=== PATIENT | male | born 1965 | race Caucasian/White ===

== ENCOUNTER 2017-02-03 10:55 | Emergency (ER) | payer SELFPAY ==
[2017-02-03] MEDS ORDERED: OXYCODONE-ACETAMINOPHEN 5-325 MG TABLET PO ONE (11:26)
[2017-02-03] MEDS ORDERED: AMLODIPINE BESYLATE 5 MG TABLET PO ONE (11:39)
--- NOTE | 2017-02-03 11:41 | ER Document Report ---
HPI - HPI Patient complains to provider of: Left foot pain Onset: Other - 4 days Onset/Duration: Worse Quality of pain: Achy Pain Level: 4 Context: Patient presents complaining of left foot pain for the past 4 days. Patient denies any injury to the foot. Patient states that that has gradually become more swollen and painful with ambulation. Patient denies any fever. Patient denies any known history of gout. Patient does have a history of high blood pressure but states that he ran out of his blood pressure medication 1 month ago. Patient denies any chest pain, headache, dyspnea, back pain or visual disturbances. Associated Symptoms: Other - Left foot pain Exacerbated by: Standing, Walking Relieved by: Denies Similar symptoms previously: No Recently seen / treated by doctor: No - ROS ROS below otherwise negative: Yes Systems Reviewed and Negative: Yes All other systems reviewed and negative - CONSTITUTIONAL Constitutional: DENIES: Fever - NEURO Neurology: DENIES: Headache, Weakness - CARDIOVASCULAR Cardiovascular: DENIES: Chest pain - RESPIRATORY Respiratory: DENIES: Trouble Breathing, Coughing - GASTROINTESTINAL Gastrointestinal: DENIES: Nausea, Patient vomiting - MUSCULOSKELETAL Musculoskeletal: REPORTS: Extremity pain, Swelling - DERM Skin Color: Erythema Skin Problems: None Past Medical History - General Information source: Patient - Social History Smoking Status: Never Smoker Frequency of alcohol use: None Drug Abuse: None 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 IN LAST 30 DAYS: No - HEENT HEENT: Atraumatic, Normocephalic - NECK Neck: Normal Inspection - RESPIRATORY Respiratory: Breath Sounds Normal, No Respiratory Distress - CARDIOVASCULAR Cardiovascular: Regular Rate, Regular Rhythm Pulses: Normal: Dorsalis pedis - MUSCULOSKELETAL/EXTREMETIES Musculoskeletal/Extremeties: MAEW, Tender - Left foot tenderness about left first and second distal metatarsal with, mild erythema to medial aspect of distal left first metatarsal, Edema - NEURO Level of Consciousness: Awake, Alert, Appropriate Motor/Sensory: No Motor Deficit - DERM Integumentary: Warm, Dry Course - Re-evaluation Re-evalutation: 02/03/17 12:47 Patient states that he is out of his blood pressure medication. Patient just started a job but prior to that did not have insurance. Patient states he has been off his blood pressure medicine for the past month. Patient denies any chest pain, shortness of breath, visual problems dyspnea or headache symptoms. Despite lack of elevation in his uric acid test, patient's exam findings are consistent with gout. Discussed this concern with patient. Discussed worsening symptoms that patient should return immediately for. Patient verbalized understanding and agrees with plan of care. 02/03/17 17:58 - Laboratory Laboratory results interpreted by me: 02/03/17 12:48 Labs- Entire Visit 02/03/17 11:42 Uric Acid 7.8 02/03/17 17:59 Labs- Entire Visit 02/03/17 11:42 Uric Acid 7.8 - Diagnostic Test Radiology reviewed: Reports reviewed Discharge - Discharge Clinical Impression: Hx of essential hypertension, Foot pain, left Gout attack Qualifiers: Gout site: foot Gout etiology: unspecified cause Laterality: left Qualified Code(s): M10.9 - Gout, unspecified Condition: Stable Disposition: HOME, SELF-CARE Instructions: Gout (OM), Gout Diet (OM), High Blood Pressure, Requiring Treatment (OM), Steroid Medication Additional Instructions: Return immediately for any new or worsening symptoms Followup with your primary care provider, call tomorrow to make a followup appointment Prescriptions: Amlodipine Besylate 5 mg PO DAILY #30 tab Bisoprolol/Hydrochlorothiazide [Bisoprolol-Hctz 10-6.25 mg Tab] 1 each PO DAILY #30 tablet Oxycodone HCl/Acetaminophen [Percocet 5-325 mg Tablet] 1 tab PO ASDIR PRN #15 tablet PRN Reason: Prednisone [Deltasone 20 mg Tablet] 2 tab PO DAILY 5 Days tablet Forms: Elevated Blood Pressure, Return to Work Referrals: [facility] [Provider Group] - Follow up as needed [facility] [Provider Group] - Follow up tomorrow
--- NOTE | 2017-02-03 12:17 | RADIOLOGY REPORT (SQ) ---
EXAM DESCRIPTION: FOOT LEFT COMPLETE COMPLETED DATE/TIME: 02/03/2017 12:07 pm REASON FOR STUDY: left foot pain/swelling 1st, 2nd MT COMPARISON: None. NUMBER OF VIEWS: Three views. TECHNIQUE: AP, lateral and oblique radiographic images acquired of the left foot. LIMITATIONS: None. FINDINGS: MINERALIZATION: Normal. BONES: No acute fracture dislocation. Plantar calcaneal spur. JOINTS: No effusions. SOFT TISSUES: No soft tissue swelling. No foreign body. OTHER: No other significant finding. IMPRESSION: Calcaneal spur with no acute abnormality. TECHNICAL DOCUMENTATION: JOB ID: [id number] [employer]- All Rights Reserved
[2017-02-03 13:15] VITALS: BP 163/106
== END 2017-02-03 13:00 | disposition home or self-care (01) ==
LOC: ER 10:55
DX: M10.9 Gout, unspecified (principal); M79.672 Pain in left foot; I10 Essential (primary) hypertension; T50.906A Underdosing of unspecified drugs, medicaments and biological substances, initial encounter; Z91.128 Patient's intentional underdosing of medication regimen for other reason; Z91.14 Patient's other noncompliance with medication regimen
CPT/HCPCS: 36415; 84550; 99283

== ENCOUNTER → 2017-08-05 | Outpatient (CLI) | payer OTHER ==
[2017-08-05 08:23] LABS: ABSOLUTE BASOPHILS # (AUTO) 0.1 10^3/uL (0.0-0.2); ABSOLUTE EOSINOPHILS # (AUTO) 0.2 10^3/uL (0.0-0.6); ABSOLUTE LYMPHOCYTES (AUTO) 2.4 10^3/uL (0.5-4.7); ABSOLUTE MONOCYTES (AUTO) 0.7 10^3/uL (0.1-1.4); ABSOLUTE NEUT (AUTO) 5.2 10^3/uL (1.7-8.2); BASOPHILS % (AUTO) 0.6 % (0-2); HEMATOCRIT 50.3 % (37.9-51.0); LYMPHOCYTES % (AUTO) 28.5 % (13-45); MEAN CORPUSCULAR HEMOGLOBIN 28.4 pg (27.0-33.4); MEAN CORPUSCULAR HGB CONC 33.8 g/dL (32.0-36.0); MEAN CORPUSCULAR VOLUME 84 fl (80-97); MONOCYTES % (AUTO) 7.8 % (3-13); PLATELET COUNT 192 10^3/uL (150-450); RED BLOOD COUNT 6.01 10^6/uL (4.35-5.55); RED CELL DISTRIBUTION WIDTH 14.6 % (11.5-14.0); SEGMENTED NEUTROPHILS % (AUTO) 61.1 % (42-78); TOTAL CELLS COUNTED % (AUTO) 100 %; WHITE BLOOD COUNT 8.5 10^3/uL (4.0-10.5)
[2017-08-05 08:47] LABS: ALANINE AMINOTRANSFERASE 33 U/L (21-72); ALBUMIN 4.3 g/dL (3.5-5.0); ALKALINE PHOSPHATASE 84 U/L (38-126); ANION GAP 13 (5-19); ASPARTATE AMINO TRANSFERASE 39 U/L (17-59); BILIRUBIN,DIRECT 0.4 mg/dL (0.0-0.4); BILIRUBIN,TOTAL 0.6 mg/dL (0.2-1.3); BLOOD UREA NITROGEN 18 mg/dL (7-20); CALCIUM 10.1 mg/dL (8.4-10.2); CARBON DIOXIDE 31 mmol/L (22-30); CHLORIDE 99 mmol/L (98-107); GLUCOSE 118 mg/dL (75-110); POTASSIUM 4.3 mmol/L (3.6-5.0); SODIUM 142.8 mmol/L (137-145); TOTAL PROTEIN 6.7 g/dL (6.3-8.2)
[2017-08-06 08:40] LABS: PROSTATE SPECIFIC ANTIGEN 0.7 ng/mL (0.0-4.0); PSA % FREE 27.1 % (.); PSA FREE 0.19 ng/mL
[2017-08-06 08:46] LABS: CHOLESTEROL 210.81 mg/dL (0-200); TRIGLYCERIDES 469 mg/dL (<150)
[2017-08-06 08:57] LABS: DIRECT LDL 105 mg/dL (<100)
== END ==
LOC: CCC 07:17
DX: Z00.00 Encounter for general adult medical examination without abnormal findings (principal); N18.1 Chronic kidney disease, stage 1; R03.0 Elevated blood-pressure reading, without diagnosis of hypertension
CPT/HCPCS: 36415; 80053; 80061; 83036; 84154; 84443; 85025

== ENCOUNTER → 2018-09-16 | Outpatient (CLI) | payer BC ==
--- NOTE | 2018-09-16 11:36 | RADIOLOGY REPORT (SQ) ---
EXAM DESCRIPTION: U/S SCROTUM W/O DOPPLER COMPLETED DATE/TIME: 09/16/2018 11:17 am REASON FOR STUDY: HYDROCELE N43.3 HYDROCELE, UNSPECIFIED COMPARISON: 11/22/2015 TECHNIQUE: Static and realtime daniels scale imaging of the scrotum and testes. Selected color Doppler and spectral images recorded to document blood flow. LIMITATIONS: None. FINDINGS: RIGHT: TESTICLE: Normal size, 5.1 x 3 x 2.9 cm. Normal echotexture. Normal blood flow. No mass. EPIDIDYMIS: Not well seen. HYDROCELE OR VARICOCELE: Large hydrocele, 11.5 x 9.9 x 6.9 cm. There is some mobile debris within it . HERNIA OR EXTRA-TESTICULAR MASS: No. OTHER: No other significant finding. LEFT: TESTICLE: Normal size, 4.6 x 2.7 x 2.5 cm. . Normal echotexture. Normal blood flow. No mass. EPIDIDYMIS: Normal. 1 cm. HYDROCELE OR VARICOCELE: No. HERNIA OR EXTRA-TESTICULAR MASS: No. OTHER: No other significant finding. IMPRESSION: Large right hydrocele. TECHNICAL DOCUMENTATION: JOB ID: [id number] [employer]- All Rights Reserved Reading location - IP/workstation name: [email or web address]
== END ==
LOC: RAD 10:20
DX: N43.3 Hydrocele, unspecified (principal)
CPT/HCPCS: 76870

== ENCOUNTER 2019-09-14 08:30 | Emergency (ER) | payer BC ==
[2019-09-14 08:39] VITALS: BP 188/105
[2019-09-14] MEDS ORDERED: HYDROCODONE/ACETAMINOPHEN 5-325 MG TABLET PO ONE (09:35)
--- NOTE | 2019-09-14 09:39 | ER Document Report ---
ED Extremity Problem, Lower - General Chief Complaint: Feet Swelling Stated Complaint: FEET SWELLING Time Seen by Provider: 09/14/19 09:16 Primary Care Provider: DOMENIC TODD PA-C [Primary Care Provider] - 09/16/19 Notes: Patient is a 53-year-old male who presents the emergency department with a chief complaint of bilateral lower extremity swelling. Patient states that he first noticed his swelling 4 months ago, but states that over the past 2 weeks his swelling and pain has gotten progressively worse. Patient states that it feels like he is standing on a hot argenis. Patient has history of hypertension. He does not know what medications he takes, but states that he takes a water pill and high blood pressure medication. TRAVEL OUTSIDE OF THE [place] IN LAST 30 DAYS: No - Related Data Allergies/Adverse Reactions: No Known Allergies Allergy (Unverified 02/03/17 10:59) Past Medical History - General Information source: Patient - Social History Smoking Status: Never Smoker Family History: Hypertension - Past Medical History Cardiac Medical History: Reports: Hx Hypertension Renal/ Medical History: Denies: Hx Peritoneal Dialysis Past Surgical History: Reports: Hx Appendectomy Review of Systems - Review of Systems Notes: REVIEW OF SYSTEMS: CONSTITUTIONAL : Denies recent illness. Denies recent unintentional weight loss. Denies fever, chills, or sweats. EENT: Denies eye, ear, throat, or mouth pain, discharge, or symptoms. Denies na cassie or sinus congestion. CARDIOVASCULAR: Denies chest pain. RESPIRATORY: Denies shortness of breath, cough, congestion, difficulty breathing, or wheezing. GASTROINTESTINAL: Denies nausea, vomiting, and diarrhea. Denies abdominal pain. Denies constipation. GENITOURINARY: Denies difficulty urinating, burning, blood in urine, urgency or frequency. MUSCULOSKELETAL: Denies neck and back pain. See HPI. SKIN: Denies rash, itchiness, or lesions HEMATOLOGIC : Denies easy bruising or bleeding. LYMPHATIC: Denies swollen, painful, enlarged glands. NEUROLOGICAL: Denies no numbness or tingling denies weakness. Denies headache. Denies altered mental status. Denies alteration in speech. PSYCHIATRIC: Denies stress, anxiety, alteration in sleep patterns, or depression. All other systems reviewed and negative. Physical Exam - Vital signs Vitals: Temp Pulse Resp BP Pulse Ox 97.6 F 100 22 H 188/105 H 100 05/27/20 08:37 09/14/19 08:37 09/14/19 08:37 09/14/19 08:37 09/14/19 08:37 - Notes Notes: PHYSICAL EXAMINATION: GENERAL: Appears well, healthy, well-nourished, no acute distress. HEAD: Normocephalic, atraumatic. EYES: PERRL, conjunctiva normal, all extraocular movements intact, sclera nonicteric ENT: Moist mucous membranes. NECK: Supple, no noticeable swelling, redness, rash. Normal range of motion. LUNGS: Equal breath sounds bilaterally and clear to auscultation. No wheezes rales or rhonchi. CARDIOVASCULAR: S1-S2, regular rate, regular rhythm. Radial pulses 2+, normal. ABDOMEN: Normoactive bowel sounds. Soft, nontender, no guarding, no rebound tenderness, and no masses palpated. EXTREMITIES: Normal strength and range of motion, No cyanosis. Tenderness noted to bilateral lower extremities with 2+ pitting edema bilaterally. NEUROLOGICAL: Moves all extremities upon command. Strength 5/5 in all extremities. PSYCH: Normal mood, normal affect. SKIN: Warm, dry. No rash, lesions, ulcerations noted. Normal skin turgor. Course - Re-evaluation Re-evalutation: 09/14/19 11:11 Hematology does not show leukocytosis. Hemoglobin is slightly elevated. C hemistries and liver function tests are unremarkable. Patient's BNP is 1130. I will have the patient follow-up with his primary care provider. We will start him on a small course of Lasix to help with the swelling in his legs. Patient is in agreement that he will follow-up with his primary care provider. Venous Doppler does not show DVT, per tech. Low suspicion for cellulitis. X-rays of his feet are unremarkable. Follow-up precautions were given. Verbal discharge instructions were given to the patient. They verbalized understanding. They are stable for discharge. - Vital Signs Vital signs: Temp Pulse Resp BP Pulse Ox 97.6 F 100 22 H 188/105 H 100 09/14/19 09:25 09/14/19 08:37 09/14/19 08:37 09/14/19 08:37 09/14/19 08:37 - Laboratory Result Diagrams: 09/14/19 09:51 09/14/19 09:51 Laboratory results interpreted by me: 09/14/19 09/14/19 09/14/19 09:51 09:51 09:51 RBC 5.86 H Hgb 17.5 H RDW 15.6 H Sodium 136.0 L Glucose 139 H NT-Pro-B Natriuret Pep 1130 H Discharge - Discharge Clinical Impression: Swollen feet, Pain in both feet Condition: Stable Disposition: HOME, SELF-CARE Additional Instructions: You were seen today in the emergency department for swelling and pain in both your legs. Your x-ray is normal. Your ultrasound does not show blood clot. You are being started on Lasix to help with the swelling. Please take as directed. Follow-up with your primary care provider on Thursday in regards to this visit. Call them today make an appointment. You can take the [place] as needed for extreme pain. Try not to take too much from the medication. Do not drive when you take [place]. Wear compression stockings. Elevate your legs. Prescriptions: Furosemide [Lasix 20 mg Tablet] 20 mg PO QAM #4 tablet Forms: Return to Work Referrals: DOMENIC TODD PA-C [Primary Care Provider] - 09/16/19
[2019-09-14 10:15] LABS: ABSOLUTE BASOPHILS # (AUTO) 0.1 10^3/uL (0.0-0.2); ABSOLUTE EOSINOPHILS # (AUTO) 0.1 10^3/uL (0.0-0.6); ABSOLUTE LYMPHOCYTES (AUTO) 1.6 10^3/uL (0.5-4.7); ABSOLUTE MONOCYTES (AUTO) 0.7 10^3/uL (0.1-1.4); ABSOLUTE NEUT (AUTO) 5.7 10^3/uL (1.7-8.2); BASOPHILS % (AUTO) 0.7 % (0-2); EOSINOPHILS % (AUTO) 1.5 % (0-6); HEMATOCRIT 49.5 % (37.9-51.0); HEMOGLOBIN 17.5 g/dL (13.5-17.0); LYMPHOCYTES % (AUTO) 19.8 % (13-45); MEAN CORPUSCULAR HEMOGLOBIN 29.9 pg (27.0-33.4); MEAN CORPUSCULAR HGB CONC 35.3 g/dL (32.0-36.0); MEAN CORPUSCULAR VOLUME 85 fl (80-97); MONOCYTES % (AUTO) 8.7 % (3-13); PLATELET COUNT 150 10^3/uL (150-450); RED BLOOD COUNT 5.86 10^6/uL (4.35-5.55); RED CELL DISTRIBUTION WIDTH 15.6 % (11.5-14.0); SEGMENTED NEUTROPHILS % (AUTO) 69.3 % (42-78); TOTAL CELLS COUNTED % (AUTO) 100 %; WHITE BLOOD COUNT 8.2 10^3/uL (4.0-10.5)
--- NOTE | 2019-09-14 10:20 | RADIOLOGY REPORT (SQ) ---
EXAM DESCRIPTION: FOOT BILATERAL 3 VIEWS IMAGES COMPLETED DATE/TIME: 09/14/2019 10:02 am REASON FOR STUDY: foot pain COMPARISON: None. NUMBER OF VIEWS: Six views. TECHNIQUE: AP, lateral and oblique views of the right and left feet were obtained. LIMITATIONS: None. FINDINGS: RIGHT FOOT: MINERALIZATION: Normal. BONES: No acute fracture or dislocation. JOINTS: The normal tarsometatarsal alignment is preserved. 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 SOFT TISSUES: No soft tissue swelling or radiopaque foreign body. OTHER: Enthesophytes at the calcaneal insertion of the Achilles tendon. LEFT FOOT: MINERALIZATION: Normal. BONES: No acute fracture or dislocation. JOINTS: The normal tarsometatarsal alignment is preserved. There is osteoarthrosis of the 1st MTP rené int. SOFT TISSUES: No soft tissue swelling or radiopaque foreign body. OTHER: Enthesophytes at the calcaneal insertion of the plantar fascia. IMPRESSION: 1. No acute osseous abnormality of the right foot. 2. No acute osseous abnormality of the left foot. TECHNICAL DOCUMENTATION: JOB ID: [id number] 2010 [employer]- All Rights Reserved Reading location - IP/workstation name: [email or web address]
[2019-09-14 10:33] LABS: ALBUMIN 4.1 g/dL (3.5-5.0); ALKALINE PHOSPHATASE 82 U/L (38-126); ANION GAP 8 (5-19); ASPARTATE AMINO TRANSFERASE 36 U/L (17-59); BILIRUBIN,TOTAL 0.8 mg/dL (0.2-1.3); BLOOD UREA NITROGEN 15 mg/dL (7-20); CALCIUM 9.2 mg/dL (8.4-10.2); CARBON DIOXIDE 26 mmol/L (22-30); CHLORIDE 102 mmol/L (98-107); GLUCOSE 139 mg/dL (75-110); POTASSIUM 3.8 mmol/L (3.6-5.0); TOTAL PROTEIN 6.8 g/dL (6.3-8.2)
[2019-09-14] MEDS ORDERED: HYDROCODONE/ACETAMINOPHEN 5-325 MG (6 TAB/ER DISP) PO PRN (11:13)
--- NOTE | 2019-09-14 13:23 | RADIOLOGY REPORT (SQ) ---
EXAM DESCRIPTION: VENOUS BILATERAL LOWER IMAGES COMPLETED DATE/TIME: 09/14/2019 1:01 pm REASON FOR STUDY: leg pain; swelling COMPARISON: None. TECHNIQUE: Dynamic and static daniels scale and color images acquired of both lower extremity venous sy stems. Selected spectral images acquired with additional compression and augmentation maneuvers. Imag es stored on PACS. LIMITATIONS: Evaluation is limited due to the patient's body habitus. FINDINGS: RIGHT LEG COMMON FEMORAL AND FEMORAL: Normal phasicity, compression and augmentation. No visualized echogenic m aterial on daniels scale. No defects on color images. POPLITEAL: Normal compression and augmentation. No visualized echogenic material on daniels scale. No de fects on color images. CALF VESSELS: Normal compression and augmentation. No visualized echogenic material on daniels scale. No defects on color image. GSV AND SSV: Normal compression. No visualized echogenic material on daniels scale. No defects on color images. ANY DEEP VENOUS INSUFFICIENCY: No. ANY EVIDENCE OF POPLITEAL CYST: No. OTHER: Unable to visualize the peroneal vein. LEFT LEG COMMON FEMORAL AND FEMORAL: Normal phasicity, compression and augmentation. No visualized echogenic m aterial on daniels scale. No defects on color images. POPLITEAL: Normal compression and augmentation. No visualized echogenic material on daniels scale. No de fects on color images. CALF VESSELS: Normal compression and augmentation. No visualized echogenic material on daniels scale. No defects on color images. GSV AND SSV: Normal compression. No visualized echogenic material on daniels scale. No defects on color images. ANY DEEP VENOUS INSUFFICIENCY: No. ANY EVIDENCE POPLITEAL CYST: No. OTHER: Unable to visualize the peroneal vein. IMPRESSION: NO EVIDENCE DVT OR SVT IN EITHER LEG. TECHNICAL DOCUMENTATION: JOB ID: [id number] [employer]- All Rights Reserved Reading location - IP/workstation name: [email or web address]-
== END 2019-09-14 11:38 | disposition home or self-care (01) ==
LOC: ER 08:30
DX: R22.43 Localized swelling, mass and lump, lower limb, bilateral (principal); M79.672 Pain in left foot; M79.671 Pain in right foot; I10 Essential (primary) hypertension
CPT/HCPCS: 36415; 80053; 83880; 85025; 93970; 99284

== ENCOUNTER → 2019-10-28 | Outpatient (CLI) | payer BC ==
[2019-10-28 08:28] LABS: HEMATOCRIT 49.7 % (37.9-51.0); MEAN CORPUSCULAR HEMOGLOBIN 30.1 pg (27.0-33.4); MEAN CORPUSCULAR HGB CONC 34.3 g/dL (32.0-36.0); MEAN CORPUSCULAR VOLUME 88 fl (80-97); PLATELET COUNT 152 10^3/uL (150-450); RED BLOOD COUNT 5.66 10^6/uL (4.35-5.55); WHITE BLOOD COUNT 7.3 10^3/uL (4.0-10.5)
[2019-10-28 08:52] LABS: ALBUMIN 4.3 g/dL (3.5-5.0); ALKALINE PHOSPHATASE 86 U/L (38-126); ANION GAP 6 (5-19); ASPARTATE AMINO TRANSFERASE 43 U/L (17-59); BILIRUBIN,TOTAL 0.6 mg/dL (0.2-1.3); BLOOD UREA NITROGEN 25 mg/dL (7-20); CALCIUM 9.1 mg/dL (8.4-10.2); CARBON DIOXIDE 33 mmol/L (22-30); CHLORIDE 99 mmol/L (98-107); GLUCOSE 137 mg/dL (75-110); POTASSIUM 5.1 mmol/L (3.6-5.0); TOTAL PROTEIN 6.9 g/dL (6.3-8.2)
[2019-10-29 10:04] LABS: APPEARANCE,URINE CLEAR; BILIRUBIN,URINE NEGATIVE (NEGATIVE); COLOR,URINE AMBER; GLUCOSE, URINE NEGATIVE (NEGATIVE); KETONES,URINE NEGATIVE (NEGATIVE); LEUKOCYTE ESTERASE,URINE NEGATIVE (NEGATIVE); NITRITE,URINE NEGATIVE (NEGATIVE); PROTEIN,URINE 100 mg/dL (NEGATIVE); URINE SPECIFIC GRAVITY 1.018; UROBILINOGEN,URINE NEGATIVE mg/dL (<2.0)
[2019-10-29 10:11] LABS: CHOLESTEROL 195.82 mg/dL (0-200); TRIGLYCERIDES 279 mg/dL (<150)
[2019-10-29 10:22] LABS: DIRECT LDL 125 mg/dL (<100)
[2019-10-29 10:24] LABS: VLDL CHOLESTEROL 55.8 mg/dL (10-31)
== END ==
LOC: OD 07:07
PROVIDERS: ATTEND Physician Assistant
DX: Z79.01 Long term (current) use of anticoagulants (principal); Z79.899 Other long term (current) drug therapy; Z13.220 Encounter for screening for lipoid disorders
CPT/HCPCS: 36415; 80048; 80061; 80076; 81001; 82272; 83735; 84443; 85027; 85730

== ENCOUNTER → 2019-12-09 | Outpatient (CLI) | payer BC | LOC: OD 07:38 | PROVIDERS: ATTEND Physician Assistant | DX: R73.01 Impaired fasting glucose (principal) | CPT/HCPCS: 36415; 83036 ==

== ENCOUNTER → 2020-01-24 | Outpatient (CLI) | payer BC ==
--- NOTE | 2020-01-24 10:10 | RADIOLOGY REPORT (SQ) ---
EXAM DESCRIPTION: DUPLEX ART/AMENA FLOW COMPLETE IMAGES COMPLETED DATE/TIME: 01/24/2020 9:42 am REASON FOR STUDY: ESSENTIAL HTN I10 ESSENTIAL (PRIMARY) HYPERTENSION COMPARISON: None. TECHNIQUE: Realtime and static grayscale images acquired. Selected color Doppler, velocities and spe ctral images recorded. LIMITATIONS: Nondiagnostic study due to the patient's body habitus and inability to hold his breath. FINDINGS: RIGHT KIDNEY: Normal size. No significant pathology as visualized. LEFT KIDNEY: Normal size. No significant pathology as visualized. BLADDER: Normal. OTHER: No other significant finding. IMPRESSION: NONDIAGNOSTIC STUDY. UNABLE TO OBTAIN ADEQUATE DOPPLER IMAGES. COMMENT: NORMAL RENAL ARTERY/AORTA VELOCITY RATIO IS LESS THAN OR EQUAL TO 3.5. TECHNICAL DOCUMENTATION: JOB ID: [id number] 2010 [employer]- All Rights Reserved Reading location - IP/workstation name: [email or web address]
== END ==
LOC: RAD 07:20
PROVIDERS: ATTEND Physician Assistant
DX: I10 Essential (primary) hypertension (principal)
CPT/HCPCS: 93975

== ENCOUNTER → 2020-02-24 | Outpatient (CLI) | payer BC ==
[2020-02-24 09:07] LABS: APPEARANCE,URINE CLEAR; BILIRUBIN,URINE NEGATIVE (NEGATIVE); COLOR,URINE YELLOW; GLUCOSE, URINE NEGATIVE (NEGATIVE); KETONES,URINE NEGATIVE (NEGATIVE); LEUKOCYTE ESTERASE,URINE NEGATIVE (NEGATIVE); NITRITE,URINE NEGATIVE (NEGATIVE); PROTEIN,URINE 100 mg/dL (NEGATIVE); UROBILINOGEN,URINE NEGATIVE mg/dL (<2.0)
[2020-02-24 09:07] LABS: HEMOGLOBIN 17.5 g/dL (13.5-17.0); MEAN CORPUSCULAR HEMOGLOBIN 29.2 pg (27.0-33.4); MEAN CORPUSCULAR HGB CONC 34.3 g/dL (32.0-36.0); MEAN CORPUSCULAR VOLUME 85 fl (80-97); PLATELET COUNT 145 10^3/uL (150-450); RED BLOOD COUNT 5.99 10^6/uL (4.35-5.55); WHITE BLOOD COUNT 7.4 10^3/uL (4.0-10.5)
[2020-02-24 09:37] LABS: ALBUMIN 4.4 g/dL (3.5-5.0); ALKALINE PHOSPHATASE 76 U/L (38-126); ANION GAP 12 (5-19); ASPARTATE AMINO TRANSFERASE 40 U/L (17-59); BILIRUBIN,DIRECT 0.2 mg/dL (0.0-0.4); BILIRUBIN,TOTAL 0.7 mg/dL (0.2-1.3); CALCIUM 9.2 mg/dL (8.4-10.2); CARBON DIOXIDE 28 mmol/L (22-30); CHLORIDE 100 mmol/L (98-107); GLUCOSE 98 mg/dL (75-110); POTASSIUM 3.8 mmol/L (3.6-5.0); TOTAL PROTEIN 7.1 g/dL (6.3-8.2)
[2020-02-24 09:38] LABS: BLOOD UREA NITROGEN 23 mg/dL (7-20)
== END ==
LOC: OD 07:49
PROVIDERS: ATTEND Internal Medicine Cardiovascular Disease
DX: I48.91 Unspecified atrial fibrillation (principal); Z79.01 Long term (current) use of anticoagulants; Z79.899 Other long term (current) drug therapy
CPT/HCPCS: 36415; 80048; 80076; 81001; 82272; 85027; 85730

== ENCOUNTER 2020-03-18 08:36 | Inpatient (IN) | payer BC ==
[2020-03-18 09:33] LABS: ABSOLUTE LYMPHOCYTES (AUTO) 0.9 10^3/uL (0.5-4.7); ABSOLUTE MONOCYTES (AUTO) 0.6 10^3/uL (0.1-1.4); BASOPHILS % (AUTO) 0.6 % (0-2); EOSINOPHILS % (AUTO) 0.2 % (0-6); HEMATOCRIT 49.5 % (37.9-51.0); HEMOGLOBIN 17.1 g/dL (13.5-17.0); LYMPHOCYTES % (AUTO) 20.4 % (13-45); MEAN CORPUSCULAR HEMOGLOBIN 29.2 pg (27.0-33.4); MEAN CORPUSCULAR HGB CONC 34.5 g/dL (32.0-36.0); MEAN CORPUSCULAR VOLUME 85 fl (80-97); MONOCYTES % (AUTO) 13.8 % (3-13); PLATELET COUNT 123 10^3/uL (150-450); RED BLOOD COUNT 5.85 10^6/uL (4.35-5.55); RED CELL DISTRIBUTION WIDTH 15.2 % (11.5-14.0); TOTAL CELLS COUNTED % (AUTO) 100 %; WHITE BLOOD COUNT 4.6 10^3/uL (4.0-10.5)
--- NOTE | 2020-03-18 09:49 | RADIOLOGY REPORT (SQ) ---
EXAM DESCRIPTION: CHEST SINGLE VIEW IMAGES COMPLETED DATE/TIME: 03/18/2020 9:34 am REASON FOR STUDY: Shortness of breath COMPARISON: None. EXAM PARAMETERS: NUMBER OF VIEWS: One view. TECHNIQUE: Single frontal radiographic view of the chest acquired. RADIATION DOSE: NA LIMITATIONS: None. FINDINGS: LUNGS AND PLEURA: Upper lobe opacities. No effusions. MEDIASTINUM AND HILAR STRUCTURES: No masses. Contour normal. HEART AND VASCULAR STRUCTURES: Enlarged heart. No overt failure. BONES: No acute findings. HARDWARE: None in the chest. OTHER: No other significant finding. IMPRESSION: Dense upper lobe opacities suspicious for covid 19. Cardiac enlargement without failure. TECHNICAL DOCUMENTATION: JOB ID: [id number] 2010 [employer]- All Rights Reserved Reading location - IP/workstation name: [email or web address]
[2020-03-18 09:59] LABS: ALBUMIN 4.2 g/dL (3.5-5.0); ALKALINE PHOSPHATASE 80 U/L (38-126); ANION GAP 6 (5-19); ASPARTATE AMINO TRANSFERASE 51 U/L (17-59); BILIRUBIN,DIRECT 0.1 mg/dL (0.0-0.4); BILIRUBIN,TOTAL 0.6 mg/dL (0.2-1.3); BLOOD UREA NITROGEN 16 mg/dL (7-20); CALCIUM 9.1 mg/dL (8.4-10.2); CARBON DIOXIDE 30 mmol/L (22-30); CHLORIDE 99 mmol/L (98-107); GLUCOSE 116 mg/dL (75-110); POTASSIUM 3.8 mmol/L (3.6-5.0); TOTAL PROTEIN 6.9 g/dL (6.3-8.2)
[2020-03-18 10:10] LABS: A TYPE INFLUENZA AG NEGATIVE (NEGATIVE); B INFLUENZA AG NEGATIVE (NEGATIVE)
--- NOTE | 2020-03-18 11:54 | ER Document Report ---
Entered by BLAS HENDERSON SCRIBE 03/18/20 0941 Acting as scribe for:CORBIN JERONIMO MD ED General - General Chief Complaint: Shortness Of Breath Stated Complaint: FEVER,COUGH,CONGESTION Time Seen by Provider: 03/18/20 09:28 Primary Care Provider: JUSTEN WADE MD [Primary Care Provider] - Follow up as needed Mode of Arrival: Ambulatory Information source: Patient Notes: This 54 year old male patient presents to the emergency department today with complaints of feeling tired, short of breath, generalized body aches, and fevers. Patient reports that he lives with his sister and she recently tested positive for COVID-19. He reports he has had shortness of breath for the past five days, mentioning that he feels generally worn out all the time. TRAVEL OUTSIDE OF THE [place] IN LAST 30 DAYS: No - Related Data Allergies/Adverse Reactions: No Known Allergies Allergy (Unverified 02/03/17 10:59) Past Medical History - General Information source: Patient - Social History Smoking Status: Never Smoker Cigarette use (# per day): No Chew tobacco use (# tins/day): No Frequency of alcohol use: None Drug Abuse: None Lives with: Family Family History: Reviewed & Not Pertinent, Hypertension - Past Medical History Cardiac Medical History: Reports: Hx Atrial Fibrillation, Hx Hype rcholesterolemia, Hx Hypertension Past Surgical History: Reports: Hx Appendectomy Review of Systems - Review of Systems Constitutional: See HPI, Fever, Malaise EENT: See HPI, Nose congestion Cardiovascular: No symptoms reported Respiratory: See HPI, Short of breath Gastrointestinal: No symptoms reported Genitourinary: No symptoms reported Male Genitourinary: No symptoms reported Musculoskeletal: See HPI, Muscle pain, Muscle stiffness Skin: No symptoms reported Hematologic/Lymphatic: No symptoms reported Neurological/Psychological: No symptoms reported -: Yes All other systems reviewed and negative Physical Exam - Vital signs Vitals: Temp Resp BP Pulse Ox 99.1 F 18 168/129 H 93 03/18/20 08:59 03/18/20 08:59 03/18/20 08:59 03/18/20 08:59 - Notes Notes: Physical Exam: General: Alert, appears well. HEENT: Normocephalic. Atraumatic. PERRL. Extraocular movements intact. Oropharynx clear. Neck: Supple. Non-tender. Respiratory: Mild respiratory distress, minimally tachypneic, saturating at 94% on room air. Clear and equal breath sounds bilaterally. Cardiovascular: Regular rate and rhythm. Abdominal: Morbidly obese. No distension. Normal Bowel Sounds. Back: No gross abnormalities. Extremities: Moves all four extremities. Upper extremities: Normal inspection. Normal ROM. Lower extremities: 1+ edema bilaterally. Normal ROM. Neurological: Normal cognition. AAOx4. Normal speech. Psychological: Normal affect. Normal Mood. Skin: Warm. Dry. Normal color. Course - Re-evaluation Re-evalutation: 03/18/20 12:32 The patient was evaluated during the global COVID-19 pandemic and that diagnosis was suspected/considered upon their initial presentation. Their evaluation, treatment and testing was consistent with current guidelines for patients who present with complaints or symptoms that may be related to COVID-19. - Vital Signs Vital signs: Temp Pulse Resp BP Pulse Ox 99.1 F 22 H 172/115 H 94 03/18/20 08:59 03/18/20 10:04 03/18/20 13:01 03/18/20 13:01 - Laboratory Result Diagrams: 03/18/20 09:21 03/18/20 09:21 Laboratory results interpreted by me: 03/18/20 03/18/20 03/18/20 09:21 09:21 12:54 RBC 5.85 H Hgb 17.1 H RDW 15.2 H Plt Count 123 L Glynn % (Auto) 13.8 H Carbonic Acid 0.98 L ABG pH 7.47 H ABG pCO2 32.6 L ABG pO2 70.6 L ABG Total CO2 Sodium 135.4 L Glucose 116 H 03/18/20 13:41 RBC Hgb RDW Plt Count Glynn % (Auto) Carbonic Acid 0.94 L ABG pH ABG pCO2 31.1 L ABG pO2 79.4 L ABG Total CO2 22.2 L Sodium Glucose - Diagnostic Test Radiology reviewed: Image reviewed, Reports reviewed - Chest x-ray shows dense bilateral upper lobe opacities consistent with COVID-19. - EKG Interpretation by Oh EKG shows normal: Vanderbilt, QRS Complexes, ST-T Waves. abnormal: Intervals - Prolonged QT interval Rate: Normal - 98 Rhythm: A.Fib, PVC's Voltage: Consistent with RVH When compared to previous EKG there are: No significant change - Consults Heidi Loving NP Time consulted: 14:30 Consulted provider: will come to ER Critical Care Note - Critical Care Note Total time excluding time spent on procedures (mins): 35 Comments: At least 35 minutes spent evaluating patient, reviewed old records and lab work, repeat evaluations drawn to determine how severe his hypoxia was and if he fit criteria for admission. Discussing the case with the hospitalist lead, discussing the case with a second hospitalist lead, and discussing the case with the admitting hospitalist provider. Discharge - Discharge Clinical Impression: Pneumonia due to 2019-nCoV, Hypoxemia, Chronic atrial fibrillation with RVR Condition: Fair Disposition: ADMITTED INPATIENT Unit Admitted: IMCU Referrals: JUSTEN WADE MD [Primary Care Provider] - Follow up as needed I personally performed the services described in the documentation, reviewed and edited the documentation which was dictated to the scribe in my presence, and it accurately records my words and actions.
[2020-03-18 13:05] LABS: ARTERIAL BLOOD BASE EXCESS 0.3 mmol/L; ARTERIAL BLOOD H2CO3 0.98 mmol/L (1.05-1.35); ARTERIAL BLOOD O2 SATURATION 95.2 % (94-98); ARTERIAL BLOOD PCO2 32.6 mmHg (35-45); ARTERIAL BLOOD PH 7.47 (7.35-7.45); ARTERIAL BLOOD PO2 70.6 mmHg (80-100)
[2020-03-18 13:06] LABS: ARTERIAL BLOOD FIO2 ROOM AIR
[2020-03-18 14:03] LABS: ARTERIAL BLOOD BASE EXCESS -1.3 mmol/L; ARTERIAL BLOOD FIO2 2L; ARTERIAL BLOOD H2CO3 0.94 mmol/L (1.05-1.35); ARTERIAL BLOOD HCO3 21.3 mmol/L (20-24); ARTERIAL BLOOD O2 SATURATION 96.4 % (94-98); ARTERIAL BLOOD PCO2 31.1 mmHg (35-45); ARTERIAL BLOOD PH 7.45 (7.35-7.45); ARTERIAL BLOOD PO2 79.4 mmHg (80-100); ARTERIAL BLOOD TOTAL CO2 22.2 mmol/L (23-27)
[2020-03-18] MEDS ORDERED: NORMAL SALINE 1000 ML 1,000 ML IV PRN (14:41)
[2020-03-18] MEDS ORDERED: MAGNESIUM HYDROXIDE SUSP 30 ML UDCUP PO PRN (14:41)
[2020-03-18] MEDS ORDERED: PROMETHAZINE HCL INJ 25 MG/1 ML VIAL IV PRN (14:41)
[2020-03-18] MEDS ORDERED: ALBUTEROL SULFATE 0.083% NEB 2.5 MG/3 ML AMPUL NEB PRN (14:41)
[2020-03-18] MEDS ORDERED: MAG HYDROX/AL HYDROX/SIMETH SUSP 30 ML UDCUP PO PRN (14:41)
--- NOTE | 2020-03-18 15:10 | EKG REPORT ---
SEVERITY:- ABNORMAL ECG - ATRIAL FIBRILLATION, V-RATE 81-133 VENTRICULAR PREMATURE COMPLEXES CONSIDER RIGHT VENTRICULAR HYPERTROPHY PROLONGED QT INTERVAL : Confirmed by: Tyler Lebron MD 18-Mar-2020 15:09:42
[2020-03-18] MEDS ORDERED: PHARMACY COMMUNICATION ORDER MC NR (15:15)
--- NOTE | 2020-03-18 15:20 | PDOC H&P ---
History of Present Illness Admission Date/PCP: JUSTEN WADE MD Patient complains of: dyspnea, fatigue, fever History of Present Illness: DENI LIM is a 54 year old male with a past medical history of persistent atrial fibrillation, hypertension, hyperlipidemia, and morbid obesity who presented to the emergency department today with complaint of 4 to 5 days of progressively worsening fatigue, malaise/myalgia, and dyspnea at rest. He reports fever at home; T-max 101.5 yesterday. He states that his sister, who he lives with, is COVID positive. Evaluation in the emergency department revealed low-grade fever (99.1), atrial fibrillation RVR (HR 96-145; persistently >120), hypertension, and tachypnea. He is mildly hypoxic (88 to 92% on room air). Laboratory evaluation was essentially unremarkable other than ABG which revealed respiratory alkalosis. CXR reveals bilateral upper lob opacities consistent with coronavirus. He is referred to the hospitalist service for further evaluation and management of the above stated complaints and findings. Past Medical History Cardiac Medical History: Reports: Atrial Fibrillation, Hyperlipidema, Hypertension Denies: Congestive Heart Failure, Myocardial Infarction Pulmonary Medical History: Reports: Sleep Apnea EENT Medical History: Reports: None Neurological Medical History: Reports: None Endocrine Medical History: Reports: Obesity Renal/ Medical History: Reports: None Malignancy Medical History: Reports: None GI Medical History: Reports: None Musculoskeltal Medical History: Reports: None Skin Medical History: Reports: None Psychiatric Medical History: Reports: None Traumatic Medical History: Reports: None Hematology: Reports: None Infectious Medical History: Reports: None Past Surgical History Past Surgical History: Reports: Appendectomy, Orthopedic Surgery - left shoulder Social History Information Source: Patient Lives with: Family Smoking Status: Never Smoker Electronic Cigarette use?: No Frequency of Alcohol Use: None Hx Recreational Drug Use: No Hx Prescription Drug Abuse: No - Advance Directive Resuscitation Status: Full Code Family History Family History: Reviewed & Not Pertinent, Hypertension Parental Family History Reviewed: Yes Children Family History Reviewed: Yes Sibling(s) Family History Reviewed.: Yes Medication/Allergy Home Medications: Labetalol HCl 100 mg PO BID #60 tablet 11/22/15 Amlodipine Besylate 5 mg PO DAILY #30 tab 02/03/17 Bisoprolol/Hydrochlorothiazide [Bisoprolol-Hctz 10-6.25 mg Tab] 1 each PO DAILY #30 tablet 10/17/17 Oxycodone HCl/Acetaminophen [Percocet 5-325 mg Tablet] 1 tab PO ASDIR PRN #15 tablet 02/03/17 Prednisone [Deltasone 20 mg Tablet] 2 tab PO DAILY 5 Days tablet 02/03/17 Furosemide [Lasix 20 mg Tablet] 20 mg PO QAM #4 tablet 09/14/19 Allergies/Adverse Reactions: No Known Allergies Allergy (Unverified 02/03/17 10:59) Review of Systems Constitutional: PRESENT: anorexia, chills, fatigue, fever(s), weakness. ABSENT: headache(s), weight gain, weight loss Eyes: ABSENT: visual disturbances Ears: ABSENT: hearing changes Cardiovascular: PRESENT: dyspnea on exertion. ABSENT: chest pain, edema, orthropnea, palpitations Respiratory: PRESENT: cough, dyspnea. ABSENT: hemoptysis Gastrointestinal: ABSENT: abdominal pain, constipation, diarrhea, hematemesis, hematochezia, nausea, vomiting Genitourinary: ABSENT: dysuria, hematuria Musculoskeletal: ABSENT: joint swelling Integumentary: ABSENT: rash, wounds Neurological: ABSENT: abnormal gait, abnormal speech, confusion, dizziness, focal weakness, syncope Psychiatric: ABSENT: anxiety, depression, homidical ideation, suicidal ideation Endocrine: ABSENT: cold intolerance, heat intolerance, polydipsia, polyuria Hematologic/Lymphatic: ABSENT: easy bleeding, easy bruising Physical Exam Vital Signs: Temp Pulse Resp BP Pulse Ox 99.1 F 22 H 172/115 H 94 03/18/20 08:59 03/18/20 10:04 03/18/20 13:01 03/18/20 13:01 Intake & Output 03/17/20 03/18/20 03/19/20 06:59 06:59 06:59 Weight 185.519 kg General appearance: PRESENT: no acute distress, cooperative, well-developed, well-nourished Head exam: PRESENT: atraumatic, normocephalic Eye exam: PRESENT: conjunctiva pink, EOMI, PERRLA. ABSENT: scleral icterus Mouth exam: PRESENT: moist, tongue midline Neck exam: ABSENT: carotid bruit, JVD, lymphadenopathy, thyromegaly Respiratory exam: PRESENT: clear to auscultation keenan, symmetrical, tachypnea, unlabored, other - room air spO2 88-92%. ABSENT: rales, rhonchi, wheezes Cardiovascular exam: PRESENT: irregular rhythm, tachycardia. ABSENT: diastolic murmur, rubs, systolic murmur Pulses: PRESENT: normal dorsalis pedis pul Vascular exam: PRESENT: normal capillary refill GI/Abdominal exam: PRESENT: normal bowel sounds, soft. ABSENT: distended, guarding, mass, organolmegaly, rebound, tenderness Rectal exam: PRESENT: deferred Extremities exam: PRESENT: full ROM. ABSENT: calf tenderness, clubbing, pedal edema Musculoskeletal exam: PRESENT: ambulatory Neurological exam: PRESENT: alert, awake, oriented to person, oriented to place, oriented to time, oriented to situation, CN II-XII grossly intact. ABSENT: motor sensory deficit Psychiatric exam: PRESENT: appropriate affect, normal mood. ABSENT: homicidal ideation, suicidal ideation Skin exam: PRESENT: dry, intact, warm. ABSENT: cyanosis, rash Results Laboratory Results: 03/18/20 09:21 03/18/20 09:21 03/18/20 03/18/20 03/18/20 09:21 09:21 09:21 WBC 4.6 RBC 5.85 H Hgb 17.1 H Hct 49.5 MCV 85 MCH 29.2 MCHC 34.5 RDW 15.2 H Plt Count 123 L Seg Neutrophils % 65.0 Carbonic Acid HCO3/H2CO3 Ratio ABG pH ABG pCO2 ABG pO2 ABG HCO3 ABG O2 Saturation ABG Base Excess FiO2 Sodium 135.4 L Potassium 3.8 Chloride 99 Carbon Dioxide 30 Anion Gap 6 BUN 16 Creatinine 1.02 Est GFR ( Amer) > 60 Glucose 116 H Calcium 9.1 Ferritin 141.00 Total Bilirubin 0.6 AST 51 Alkaline Phosphatase 80 C-Reactive Protein 10.0 Total Protein 6.9 Albumin 4.2 03/18/20 03/18/20 12:54 13:41 WBC RBC Hgb Hct MCV MCH MCHC RDW Plt Count Seg Neutrophils % Carbonic Acid 0.98 L 0.94 L HCO3/H2CO3 Ratio 23:1 22:1 ABG pH 7.47 H 7.45 ABG pCO2 32.6 L 31.1 L ABG pO2 70.6 L 79.4 L ABG HCO3 23.0 21.3 ABG O2 Saturation 95.2 96.4 ABG Base Excess 0.3 -1.3 FiO2 ROOM AIR 2L Sodium Potassium Chloride Carbon Dioxide Anion Gap BUN Creatinine Est GFR ( Amer) Glucose Calcium Ferritin Total Bilirubin AST Alkaline Phosphatase C-Reactive Protein Total Protein Albumin Impressions: Chest X-Ray 03/18/20 09:13 IMPRESSION: Dense upper lobe opacities suspicious for covid 19. Cardiac enlargement without failure. Assessment and Plan - Diagnosis (1) Chronic atrial fibrillation with RVR Is this a current diagnosis for this admission?: Yes Plan: Patient w/ chronic, persistent, a. fib. Typically is rate controlled in 70s-80s per patient. Currently in RVR w/ HR 120-140; likely secondary to acute illness/covid pneumonia. He does appear slightly dehydrated by exam; admits to poor oral intake x 2 days. Patient is admitted to [facility] on continuous cardiac telemetry. Continue home dose Eliquis. Gentle IVF x 2L; close attention to prevention of fluid volume overload in setting of COVID. Start diltiazem gtt; titrate per protocol. EKG in the morning. (2) Pneumonia due to 2019-nCoV Is this a current diagnosis for this admission?: Yes Plan: High suspicion for COVID CXR is consistent with covid PNA, sister (who he lives with) is positive, and symptoms are consistent. We will obtain COVID testing. D-dimer, ferritin, and CRP are normal. Provide supplemental oxygen as needed maintain saturations greater than 89%. CPAP nightly and prn. Scheduled and as needed nebulizer treatments. Discussed w/ pharmacy; can't release Remdesivir until test results positive. Will not be able to utilize Azithromycin 2/2 prolonged qTc interval. Will discuss option for convalescent plasma w/ patient. Start IV dexamethasone. Zinc, vitamin D, vitamin C, and melatonin supplementation. Encourage pulmonary toilet. Isolation precautions. (3) HTN (hypertension) Qualifiers: Hypertension type: essential hypertension Qualified Code(s): I10 - Essential (primary) hypertension Is this a current diagnosis for this admission?: Yes Plan: Currently on diltiazem gtt for afib RvR Will resume home medications, once reconciled, as appropriate. Cardiac diet. (4) Morbid obesity with BMI of 50.0-59.9, adult Is this a current diagnosis for this admission?: Yes Plan: Dietary discretion and lifestyle modification encouraged. Cardiac diet. Patient's body habitus/BMI place him at high risk for COVID 19 complications. Close attention to pulmonary toilet. (5) Prolonged QT interval Is this a current diagnosis for this admission?: Yes Plan: Avoid Qt prolonging medications (zofran, azithromycin). EKG in the morning. - Time Time Spent with patient: 35 or more minutes Medications reviewed and adjusted accordingly: Yes Anticipated Discharge Disposition: Home, Self Care Anticipated Discharge Timeframe: unclear
[2020-03-18] MEDS ORDERED: ACETAMINOPHEN 325 MG TABLET PO ONE (15:39)
[2020-03-18] MEDS: DILTIAZEM HCL/D5W 125 MG/125 ML RTUINJ IV PRN ×2 (15:57→22:50)
[2020-03-18] MEDS: DEXAMETHASONE SOD PHOSPHATE INJ 4 MG/1 ML VIAL IV SCH (15:57)
[2020-03-18] MEDS: APIXABAN 5 MG TABLET PO SCH (17:30)
[2020-03-18] MEDS: ASCORBIC ACID 500 MG TABLET PO SCH (17:30)
[2020-03-18] MEDS ORDERED: (PENDING PHARMACY ID) (Irbesartan/Hydrochlorothiazide [Irbesartan-Hctz 300-12.5 Mg Tb] 1 E PO SCH (18:23)
[2020-03-18] MEDS ORDERED: HYDRALAZINE HCL 25 MG TABLET PO ONE (19:00)
[2020-03-18] MEDS: ALBUTEROL SULFATE 0.083% NEB 2.5 MG/3 ML AMPUL NEB SCH (21:13)
[2020-03-18] MEDS: ATORVASTATIN CALCIUM 40 MG TABLET PO SCH (21:16)
[2020-03-18] MEDS ORDERED: LOSARTAN POTASSIUM 50 MG TABLET PO ONE ×2 (22:27→22:45)
[2020-03-18] MEDS ORDERED: HYDROCHLOROTHIAZIDE 12.5 MG TABLET PO ONE ×2 (22:28→22:45)
[2020-03-19] MEDS: ALBUTEROL SULFATE 0.083% NEB 2.5 MG/3 ML AMPUL NEB SCH ×4 (01:55→20:40)
[2020-03-19] MEDS: DILTIAZEM HCL/D5W 125 MG/125 ML RTUINJ IV PRN (05:35)
[2020-03-19 05:38] LABS: ABSOLUTE LYMPHOCYTES (AUTO) 0.7 10^3/uL (0.5-4.7); ABSOLUTE MONOCYTES (AUTO) 0.4 10^3/uL (0.1-1.4); ABSOLUTE NEUT (AUTO) 2.6 10^3/uL (1.7-8.2); BASOPHILS % (AUTO) 0.2 % (0-2); HEMATOCRIT 47.4 % (37.9-51.0); HEMOGLOBIN 16.4 g/dL (13.5-17.0); LYMPHOCYTES % (AUTO) 18.9 % (13-45); MEAN CORPUSCULAR HEMOGLOBIN 29.5 pg (27.0-33.4); MEAN CORPUSCULAR HGB CONC 34.5 g/dL (32.0-36.0); MEAN CORPUSCULAR VOLUME 86 fl (80-97); MONOCYTES % (AUTO) 10.8 % (3-13); PLATELET COUNT 120 10^3/uL (150-450); RED BLOOD COUNT 5.54 10^6/uL (4.35-5.55); SEGMENTED NEUTROPHILS % (AUTO) 70.1 % (42-78); TOTAL CELLS COUNTED % (AUTO) 100 %; WHITE BLOOD COUNT 3.7 10^3/uL (4.0-10.5)
[2020-03-19 06:14] LABS: ANION GAP 12 (5-19); BLOOD UREA NITROGEN 23 mg/dL (7-20); CALCIUM 8.8 mg/dL (8.4-10.2); CARBON DIOXIDE 25 mmol/L (22-30); CHLORIDE 101 mmol/L (98-107); GLUCOSE 157 mg/dL (75-110); POTASSIUM 4.2 mmol/L (3.6-5.0)
--- NOTE | 2020-03-19 06:43 | EKG REPORT ---
SEVERITY:- ABNORMAL ECG - ATRIAL FIBRILLATION, V-RATE 70-115 NONSPECIFIC INTRAVENTRICULAR CONDUCTION DELAY LOW VOLTAGE IN FRONTAL LEADS L POST FASCICULAR BLOCK : Confirmed by: Tyler Lebron MD 19-Mar-2020 06:43:10
[2020-03-19] MEDS ORDERED: DILTIAZEM HCL 60 MG TABLET PO ONE (07:35)
[2020-03-19] MEDS: ASPIRIN 81 MG TABLET, ENT COATED PO SCH (09:41)
[2020-03-19] MEDS: DOCUSATE SODIUM 100 MG CAPSULE PO SCH (09:41)
[2020-03-19] MEDS: ASCORBIC ACID 500 MG TABLET PO SCH ×2 (09:42→17:06)
[2020-03-19] MEDS: CHOLECALCIFEROL (D3) 1,000 UNIT (25 MCG) TABLET PO SCH (09:42)
[2020-03-19] MEDS: LOSARTAN POTASSIUM 50 MG TABLET PO SCH (09:42)
[2020-03-19] MEDS: MAGNESIUM OXIDE 400 MG TABLET PO SCH (09:42)
[2020-03-19] MEDS: ZINC SULFATE 220 MG CAPSULE PO SCH (09:42)
[2020-03-19] MEDS: HYDROCHLOROTHIAZIDE 12.5 MG TABLET PO SCH (09:42)
[2020-03-19] MEDS: DEXAMETHASONE SOD PHOSPHATE INJ 4 MG/1 ML VIAL IV SCH (09:42)
[2020-03-19] MEDS: APIXABAN 5 MG TABLET PO SCH ×2 (09:43→17:06)
[2020-03-19] MEDS ORDERED: ENOXAPARIN SODIUM INJ 40 MG/0.4 ML DISP.SYRIN SUBCUT SCH (10:00)
[2020-03-19] MEDS ORDERED: (PENDING PHARMACY ID) (Irbesartan/Hydrochlorothiazide [Irbesartan-Hctz 300-12.5 Mg Tb] 1 E PO SCH (10:00)
[2020-03-19] MEDS: DILTIAZEM HCL 60 MG TABLET PO SCH ×3 (12:18→23:27)
--- NOTE | 2020-03-19 16:23 | PDOC PROGRESS REPORT ---
Subjective Date:: 03/19/20 Subjective:: DENI LIM is a 54 year old male with a past medical history of persistent atrial fibrillation, hypertension, hyperlipidemia, and morbid obesity who was admitted 03/18/20 with atrial fibrillation RVR and suspected COVID pneumonia. The patient was seen on afternoon rounds. Was found sitting up to the edge of the bed, comfortably, on supplemental oxygen via nasal cannula. He was maintaining his saturations in the high 90s. He reports that he is feeling well today. He does admit to some continued shortness of breath with activity but states that he feels that he is approaching his baseline. He does admit to some continued fatigue, although, this is also improved. We discussed his improved heart rate and hypertension with diltiazem and resumption of his home dose losartan and hydrochlorothiazide. We also discussed his potential COVID-19 diagnosis; continued mild symptoms, and potential discharge to home tomorrow if he remains minimally symptomatic and maintaining saturations on room air. He denies fever (T-max 99.1/24 hours), chills, chest pain, palpitations, dyspnea at rest, abdominal pain, nausea, vomiting, diarrhea. He has no questions or concerns at this time; hopeful to discharge to home soon. No concerns per nursing. Reason For Visit: COVID PNEUMONIA,A FIB RVR Physical Exam Vital Signs: Temp Pulse Resp BP Pulse Ox 98.1 F 101 H 16 118/84 94 03/19/20 11:51 03/19/20 15:00 03/19/20 13:55 03/19/20 15:00 03/19/20 13:55 Intake & Output 03/18/20 03/19/20 03/20/20 06:59 06:59 06:59 Intake Total 1353 78 Output Total 200 Balance 1153 78 Weight 185 kg General appearance: PRESENT: no acute distress, cooperative, morbidly obese, well-developed, well-nourished Head exam: PRESENT: atraumatic, normocephalic Eye exam: PRESENT: conjunctiva pink, EOMI, PERRLA. ABSENT: scleral icterus Mouth exam: PRESENT: moist, tongue midline Respiratory exam: PRESENT: clear to auscultation keenan, symmetrical, unlabored, other - supplemental oxygen via NC. ABSENT: rales, rhonchi, wheezes Cardiovascular exam: PRESENT: irregular rhythm - afib; rate controlled, +S1, +S2. ABSENT: diastolic murmur, rubs, systolic murmur Vascular exam: PRESENT: normal capillary refill Extremities exam: PRESENT: full ROM. ABSENT: calf tenderness, clubbing, pedal edema Musculoskeletal exam: PRESENT: ambulatory Neurological exam: PRESENT: alert, awake, oriented to person, oriented to place, oriented to time, oriented to situation, CN II-XII grossly intact. ABSENT: motor sensory deficit Psychiatric exam: PRESENT: appropriate affect, normal mood. ABSENT: homicidal ideation, suicidal ideation Skin exam: PRESENT: dry, intact, warm. ABSENT: cyanosis, rash Results Laboratory Results: 03/19/20 05:22 03/19/20 05:22 03/19/20 03/19/20 05:22 05:22 WBC 3.7 L RBC 5.54 Hgb 16.4 Hct 47.4 MCV 86 MCH 29.5 MCHC 34.5 RDW 15.0 H Plt Count 120 L Seg Neutrophils % 70.1 Sodium 137.5 Potassium 4.2 Chloride 101 Carbon Dioxide 25 Anion Gap 12 BUN 23 H Creatinine 1.13 Est GFR ( Amer) > 60 Glucose 157 H Calcium 8.8 Impressions: Chest X-Ray 03/18/20 09:13 IMPRESSION: Dense upper lobe opacities suspicious for covid 19. Cardiac enlargement without failure. Assessment and Plan - Diagnosis (1) Chronic atrial fibrillation with RVR Is this a current diagnosis for this admission?: Yes Plan: Imporved; no rate controlled on diltiazem. Patient w/ chronic, persistent, a. fib. Typically is rate controlled in 70s-80s per patient. Patient is admitted to [facility] on continuous cardiac telemetry. Continue home dose Eliquis. Gentle IVF x 1L Received diltiazem drip; titrated per protocol until rate control achieved. Now transitioned to oral diltiazem at 60 mg q6h; continues to maintain HR in the 80-90s. Outpatient follow up with established nutrition counselor. (2) Pneumonia due to 2019-nCoV Is this a current diagnosis for this admission?: Yes Plan: Doing well; will wean from O2, as tolerated, today. High suspicion for COVID CXR is consistent with covid PNA, sister (who he lives with) is positive, and symptoms are consistent. COVID test pending. D-dimer, ferritin, and CRP are normal. Provide supplemental oxygen as needed maintain saturations greater than 89%. CPAP nightly and prn. Scheduled and as needed nebulizer treatments. Discussed w/ pharmacy; can't release Remdesivir until test results positive. Will not be able to utilize Azithromycin 2/2 prolonged qTc interval. Continue IV dexamethasone. Zinc, vitamin D, vitamin C, and melatonin supplementation. Encourage pulmonary toilet. Isolation precautions. (3) HTN (hypertension) Qualifiers: Hypertension type: essential hypertension Qualified Code(s): I10 - E ssential (primary) hypertension Is this a current diagnosis for this admission?: Yes Plan: Good blood pressure control at present; 118/84. Continue diltiazem 60 mg every 6 hours. Continue losartan 100 mg daily and hydrochlorothiazide 12.5 mg daily. Oral hydralazine as needed. Cardiac diet. (4) Prolonged QT interval Is this a current diagnosis for this admission?: Yes Plan: Improved; though QTc still 497 Continue to avoid Qt prolonging medications (zofran, azithromycin) (5) Morbid obesity with BMI of 50.0-59.9, adult Is this a current diagnosis for this admission?: Yes Plan: Dietary discretion and lifestyle modification encouraged. Cardiac diet. Patient's body habitus/BMI place him at high risk for COVID 19 complications. Close attention to pulmonary toilet. - Time Time Spent with patient: 25-34 minutes Medications reviewed and adjusted accordingly: Yes Anticipated Discharge Disposition: Home, Self Care Anticipated Discharge Timeframe: within 24 hours - pending O2 needs
[2020-03-19] MEDS: ATORVASTATIN CALCIUM 40 MG TABLET PO SCH (21:03)
[2020-03-20] MEDS: ALBUTEROL SULFATE 0.083% NEB 2.5 MG/3 ML AMPUL NEB SCH ×4 (01:52→20:40)
[2020-03-20] MEDS: DILTIAZEM HCL 60 MG TABLET PO SCH ×4 (05:01→23:49)
[2020-03-20] MEDS ORDERED: PHARMACY COMMUNICATION ORDER MC NR (08:13)
[2020-03-20] MEDS: CHOLECALCIFEROL (D3) 1,000 UNIT (25 MCG) TABLET PO SCH (09:03)
[2020-03-20] MEDS: ZINC SULFATE 220 MG CAPSULE PO SCH (09:03)
[2020-03-20] MEDS: DOCUSATE SODIUM 100 MG CAPSULE PO SCH (09:03)
[2020-03-20] MEDS: LOSARTAN POTASSIUM 50 MG TABLET PO SCH (09:03)
[2020-03-20] MEDS: MAGNESIUM OXIDE 400 MG TABLET PO SCH (09:03)
[2020-03-20] MEDS: ASCORBIC ACID 500 MG TABLET PO SCH ×2 (09:03→16:59)
[2020-03-20] MEDS: ASPIRIN 81 MG TABLET, ENT COATED PO SCH (09:03)
[2020-03-20] MEDS: HYDROCHLOROTHIAZIDE 12.5 MG TABLET PO SCH (09:03)
[2020-03-20] MEDS: APIXABAN 5 MG TABLET PO SCH ×2 (09:03→16:59)
--- NOTE | 2020-03-20 10:03 | EKG REPORT ---
SEVERITY:- ABNORMAL ECG - ATRIAL FIBRILLATION, V-RATE 71-103 LEFT POSTERIOR FASCICULAR BLOCK LOW VOLTAGE IN FRONTAL LEADS : Confirmed by: Raúl Cool MD 20-Mar-2020 10:02:20
[2020-03-20] MEDS ORDERED: REMDESIVIR 200 MG in NORMAL SALINE 250 ML IV ONE (12:00)
[2020-03-20] MEDS: METHYLPREDNISOLONE INJ 40 MG/1 ML SDV IV SCH ×2 (13:02→21:19)
--- NOTE | 2020-03-20 18:55 | PDOC PROGRESS REPORT ---
Subjective Date:: 03/20/20 Subjective:: DENI LIM is a 54 year old male with a past medical history of persistent atrial fibrillation, hypertension, hyperlipidemia, and morbid obesity who was admitted 03/18/20 with atrial fibrillation RVR and suspected COVID pneumonia. The patient was seen on afternoon rounds. Was found sitting up to the edge of the bed, comfortably, on supplemental oxygen via nasal cannula t 4 lpm. He is not home O2 dependent. He reports that he is feeling unwell today; increased fatigue, body aches, now with pleuritic chest pain on deep inspiration and cough and some sputum production. He states that he did not sleep well. H does have some continued shortness of breath with minimal activity but comfortable breathing at rest. He denies fever (T-max 99.0/24 hrs, 99.9/48 hrs), chills, abdominal pain, nausea, vomiting, diarrhea. We discussed treatment options for Covid including FDA and investigational. At this time, he is agreeable to steroids, vitamin regiment, and remdesivir. Does state that he will consider convalescent plasma and ivermectin should he continue to worsen. He does confirm FULL CODE STATUS. He has no other questions or concerns at this time. No concerns per nursing. Reason For Visit: COVID PNEUMONIA,A FIB RVR Physical Exam Vital Signs: Temp Pulse Resp BP Pulse Ox 99.0 F 90 18 156/71 H 99 03/20/20 12:08 03/20/20 14:20 03/20/20 14:20 03/20/20 12:08 03/20/20 14:20 Intake & Output 03/19/20 03/20/20 03/21/20 06:59 06:59 06:59 Intake Total 1353 1236 250 Output Total 200 Balance 1153 1236 250 Weight 185 kg 189.2 kg 189.2 kg General appearance: PRESENT: no acute distress, cooperative - Pleasant, morbidly obese, well-developed, well-nourished Head exam: PRESENT: atraumatic, normocephalic Eye exam: PRESENT: conjunctiva pink, EOMI, PERRLA. ABSENT: scleral icterus Mouth exam: PRESENT: moist, tongue midline Teeth exam: PRESENT: poor dentation Respiratory exam: PRESENT: chest wall tenderness - Pleuritic chest pain with cough and inspiration, clear to auscultation keenan, symmetrical, unlabored, other - Supplemental oxygen by nasal cannula. ABSENT: rales, rhonchi, wheezes Cardiovascular exam: PRESENT: irregular rhythm, +S1, +S2. ABSENT: diastolic murmur, rubs, systolic murmur Pulses: PRESENT: normal dorsalis pedis pul Vascular exam: PRESENT: normal capillary refill Extremities exam: PRESENT: full ROM. ABSENT: calf tenderness, clubbing, pedal edema Musculoskeletal exam: PRESENT: ambulatory Neurological exam: PRESENT: alert, awake, oriented to person, oriented to place, oriented to time, oriented to situation, CN II-XII grossly intact. ABSENT: motor sensory deficit Psychiatric exam: PRESENT: appropriate affect, normal mood. ABSENT: homicidal ideation, suicidal ideation Skin exam: PRESENT: dry, intact, warm. ABSENT: cyanosis, rash Results Laboratory Results: 03/19/20 05:22 03/19/20 05:22 Impressions: Chest X-Ray 03/18/20 09:13 IMPRESSION: Dense upper lobe opacities suspicious for covid 19. Cardiac enlargement without failure. Assessment and Plan - Diagnosis (1) Pneumonia due to 2019-nCoV Is this a current diagnosis for this admission?: Yes Plan: Unfortunately, worsened symptoms today and increased need for oxygen support. COVID positive CXR is consistent with covid PNA D-dimer, ferritin, and CRP are normal. Provide supplemental oxygen as needed maintain saturations greater than 89%. CPAP nightly and prn. Scheduled and as needed nebulizer treatments. Start Remdesivir Continue IV dexamethasone. Zinc, vitamin D, vitamin C, and melatonin supplementation. Daily aspirin and statin therapy. Encourage pulmonary toilet. Isolation precautions. Will not be able to utilize Azithromycin 2/2 prolonged qTc interval. Patient currently declines convalescent plasma and ivermectin (2) Acute respiratory failure due to COVID-19 Is this a current diagnosis for this admission?: Yes Plan: Overnight, while on CPAP (room air, EPAP 14), patient had multiple desaturation events lasting several minutes. Typically desatted to the mid 60s, however, did reach 40%. Nursing was able to verify by telemetry that pulse oximeter had a good Plath and so this was an accurate reading with heart rate matching telemetry. Respiratory therapy contacted; CPAP was adjusted to include supplemental oxygen. During the day today, he does continue to have increased tachypnea, dyspnea at rest, and oxygen requirements while awake. So, although, the patient likely has underlying/undiagnosed ELFEGO, he is also experiencing acute respiratory failure with hypoxia secondary to COVID-19 pneumonia. Remaining evaluation and management as above. (3) HTN (hypertension) Qualifiers: Hypertension type: essential hypertension Qualified Code(s): I10 - Unique tamezl (primary) hypertension Is this a current diagnosis for this admission?: Yes Plan: Adequate blood pressure control at present; 156/71. Patient states that he previously had severly elevated BP requiring ~7 medications. Continue diltiazem 60 mg every 6 hours. Continue losartan 100 mg daily and hydrochlorothiazide 12.5 mg daily. Oral hydralazine as needed. Cardiac diet. (4) Chronic atrial fibrillation with RVR Is this a current diagnosis for this admission?: Yes Plan: Improved; now rate controlled on diltiazem. Current heart rate 90-120; mild tachycardia acceptable given his current acute respiratory failure and Covid viral infection. Patient w/ chronic, persistent, a. fib. Typically is rate controlled in 70s-80s per patient. Patient is admitted to [facility] on continuous cardiac telemetry. Continue home dose Eliquis. Received diltiazem drip; titrated per protocol until rate control achieved. Now transitioned to oral diltiazem at 60 mg q6h; continues to remain rate controlled. Outpatient follow up with established parcel wrapper. (5) Morbid obesity with BMI of 50.0-59.9, adult Is this a current diagnosis for this admission?: Yes Plan: Dietary discretion and lifestyle modification encouraged. Cardiac diet. Patient's body habitus/BMI place him at high risk for COVID 19 complications. Close attention to pulmonary toilet. (6) Prolonged QT interval Is this a current diagnosis for this admission?: Yes Plan: Improved; though QTc still 497 Continue to avoid Qt prolonging medications (zofran, azithromycin) (7) ELFEGO (obstructive sleep apnea) Is this a current diagnosis for this admission?: Yes Plan: CPAP nightly Will require overnight sleep study for home CPAP device. - Time Time Spent with patient: 25-34 minutes Medications reviewed and adjusted accordingly: Yes Anticipated Discharge Disposition: Home, Self Care Anticipated Discharge Timeframe: TBD
[2020-03-20] MEDS: ATORVASTATIN CALCIUM 40 MG TABLET PO SCH (21:19)
[2020-03-21] MEDS: ALBUTEROL SULFATE 0.083% NEB 2.5 MG/3 ML AMPUL NEB SCH ×4 (02:29→21:06)
[2020-03-21] MEDS: DILTIAZEM HCL 60 MG TABLET PO SCH ×3 (05:13→17:12)
[2020-03-21] MEDS: METHYLPREDNISOLONE INJ 40 MG/1 ML SDV IV SCH ×3 (05:13→22:03)
[2020-03-21 05:38] LABS: HEMATOCRIT 48.1 % (37.9-51.0); HEMOGLOBIN 16.4 g/dL (13.5-17.0); MEAN CORPUSCULAR HEMOGLOBIN 29.2 pg (27.0-33.4); MEAN CORPUSCULAR VOLUME 86 fl (80-97); PLATELET COUNT 132 10^3/uL (150-450); RED CELL DISTRIBUTION WIDTH 14.7 % (11.5-14.0); WHITE BLOOD COUNT 7.2 10^3/uL (4.0-10.5)
[2020-03-21 05:58] LABS: ALBUMIN 3.9 g/dL (3.5-5.0); ALKALINE PHOSPHATASE 59 U/L (38-126); ANION GAP 12 (5-19); ASPARTATE AMINO TRANSFERASE 36 U/L (17-59); BILIRUBIN,DIRECT 0.2 mg/dL (0.0-0.4); BILIRUBIN,TOTAL 0.8 mg/dL (0.2-1.3); BLOOD UREA NITROGEN 31 mg/dL (7-20); CARBON DIOXIDE 24 mmol/L (22-30); CHLORIDE 100 mmol/L (98-107); CREATINE KINASE 149 U/L (55-170); GLUCOSE 182 mg/dL (75-110); POTASSIUM 4.4 mmol/L (3.6-5.0); TOTAL PROTEIN 6.6 g/dL (6.3-8.2)
[2020-03-21] MEDS: ACETAMINOPHEN 325 MG TABLET PO PRN (08:10)
[2020-03-21] MEDS: ASPIRIN 81 MG TABLET, ENT COATED PO SCH (10:44)
[2020-03-21] MEDS: HYDROCHLOROTHIAZIDE 12.5 MG TABLET PO SCH (10:44)
[2020-03-21] MEDS: APIXABAN 5 MG TABLET PO SCH ×2 (10:45→17:12)
[2020-03-21] MEDS: LOSARTAN POTASSIUM 50 MG TABLET PO SCH (10:45)
[2020-03-21] MEDS: CHOLECALCIFEROL (D3) 1,000 UNIT (25 MCG) TABLET PO SCH (10:45)
[2020-03-21] MEDS: DOCUSATE SODIUM 100 MG CAPSULE PO SCH (10:46)
[2020-03-21] MEDS: MAGNESIUM OXIDE 400 MG TABLET PO SCH (10:46)
[2020-03-21] MEDS: ASCORBIC ACID 500 MG TABLET PO SCH ×2 (10:47→17:12)
[2020-03-21] MEDS: REMDESIVIR 100 MG in NORMAL SALINE 250 ML IV SCH (10:47)
[2020-03-21] MEDS: ZINC SULFATE 220 MG CAPSULE PO SCH (10:48)
[2020-03-21] MEDS: HYDRALAZINE HCL 50 MG TABLET PO SCH ×2 (13:44→22:03)
--- NOTE | 2020-03-21 18:31 | PDOC PROGRESS REPORT ---
Subjective Date:: 03/21/20 Subjective:: DENI LIM is a 54 year old male with a past medical history of persistent atrial fibrillation, hypertension, hyperlipidemia, and morbid obesity who was admitted 03/18/20 with atrial fibrillation RVR and suspected COVID pneumonia. The patient was seen on afternoon rounds. Was found sitting up to the recliner, comfortably, on room air. He did utilize CPAP with 4 to 5 L/min overnight. He states that he is feeling better today. He continues to be fatigued and feels that he would be short of breath if he were to ambulate any amount of distance, however, he has been comfortable moving about his room today. He does continue to have a productive cough. Otherwise his symptoms are improved. He denies fever (T-max 99.0/48 hrs), chills, abdominal pain, nausea, vomiting, diarrhea. He has no other questions or concerns at this time. No concerns per nursing. Reason For Visit: COVID PNEUMONIA,A FIB RVR Physical Exam Vital Signs: Temp Pulse Resp BP Pulse Ox 97.9 F 95 16 140/82 H 95 03/21/20 16:26 03/21/20 16:26 03/21/20 14:02 03/21/20 16:26 03/21/20 16:26 Intake & Output 03/20/20 03/21/20 03/22/20 06:59 06:59 06:59 Intake Total 1236 1806 250 Output Total 450 Balance 1236 1356 250 Weight 189.2 kg 189.2 kg General appearance: PRESENT: no acute distress, cooperative - pleasant, morbidly obese, well-developed, well-nourished Head exam: PRESENT: atraumatic, normocephalic Eye exam: PRESENT: conjunctiva pink, EOMI, PERRLA. ABSENT: scleral icterus Mouth exam: PRESENT: moist, tongue midline Neck exam: ABSENT: carotid bruit, JVD, lymphadenopathy, thyromegaly Respiratory exam: PRESENT: clear to auscultation keenan, symmetrical, unlabored, other - room air when awake. ABSENT: rales, rhonchi, wheezes Cardiovascular exam: PRESENT: irregular rhythm, +S1, +S2. ABSENT: diastolic murmur, rubs, systolic murmur Pulses: PRESENT: normal dorsalis pedis pul Vascular exam: PRESENT: normal capillary refill Extremities exam: PRESENT: full ROM. ABSENT: calf tenderness, clubbing, pedal edema Musculoskeletal exam: PRESENT: ambulatory Neurological exam: PRESENT: alert, awake, oriented to person, oriented to place, oriented to time, oriented to situation, CN II-XII grossly intact. ABSENT: motor sensory deficit Psychiatric exam: PRESENT: appropriate affect, normal mood. ABSENT: homicidal ideation, suicidal ideation Skin exam: PRESENT: dry, intact, warm. ABSENT: cyanosis, rash Results Laboratory Results: 03/21/20 05:12 03/21/20 05:12 03/21/20 03/21/20 05:12 05:12 WBC 7.2 RBC 5.60 H Hgb 16.4 Hct 48.1 MCV 86 MCH 29.2 MCHC 34.0 RDW 14.7 H Plt Count 132 L Sodium 136.3 L Potassium 4.4 Chloride 100 Carbon Dioxide 24 Anion Gap 12 BUN 31 H Creatinine 1.12 Est GFR ( Amer) > 60 Glucose 182 H Calcium 9.0 Total Bilirubin 0.8 AST 36 Alkaline Phosphatase 59 Total Protein 6.6 Albumin 3.9 03/21/20 05:12 Creatine Kinase 149 Impressions: Chest X-Ray 03/18/20 09:13 IMPRESSION: Dense upper lobe opacities suspicious for covid 19. Cardiac enlargement without failure. Assessment and Plan - Diagnosis (1) Pneumonia due to 2019-nCoV Is this a current diagnosis for this admission?: Yes Plan: Unfortunately, worsened symptoms today and increased need for oxygen support. COVID positive CXR is consistent with covid PNA D-dimer, ferritin, and CRP are normal. Provide supplemental oxygen as needed maintain saturations greater than 89%. CPAP nightly and prn. Scheduled and as needed nebulizer treatments. Continue Remdesivir Continue IV solu-medrol Zinc, vitamin D, vitamin C, and melatonin supplementation. Daily aspirin and statin therapy. Encourage pulmonary toilet. Isolation precautions. Will not be able to utilize Azithromycin 2/2 prolonged qTc interval. Patient currently declines convalescent plasma and ivermectin (2) Acute respiratory failure due to COVID-19 Is this a current diagnosis for this admission?: Yes Plan: Improved; now maintaining oxygen saturations on room air while awake. We will obtain overnight pulse oximetry study to determine nighttime oxygen requirements. Remaining evaluation and management as above. (3) HTN (hypertension) Qualifiers: Hypertension type: essential hypertension Qualified Code(s): I10 - Essential (primary) hypertension Is this a current diagnosis for this admission?: Yes Plan: Adequate blood pressure control at present; 156/71. Patient states that he previously had severly elevated BP requiring ~7 medications. Continue diltiazem 60 mg every 6 hours. Continue losartan 100 mg daily and hydrochlorothiazide 12.5 mg daily. Start hydralazine 50 mg every 8 hours (previously prescribed 100 mg every 8). Cardiac diet. (4) Chronic atrial fibrillation with RVR Is this a current diagnosis for this admission?: Yes Plan: Improved; now rate controlled on diltiazem. Current heart rate 90-120; mild tachycardia acceptable given his current acute respiratory failure and Covid viral infection. Patient w/ chronic, persistent, a. fib. Typically is rate controlled in 70s-80s per patient. Patient is admitted to [facility] on continuous cardiac telemetry. Continue home dose Eliquis. Received diltiazem drip; titrated per protocol until rate control achieved. Now transitioned to oral diltiazem at 60 mg q6h; continues to remain rate controlled. 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 (5) Morbid obesity with BMI of 50.0-59.9, adult Is this a current diagnosis for this admission?: Yes Plan: Dietary discretion and lifestyle modification encouraged. Cardiac diet. Patient's body habitus/BMI place him at high risk for COVID 19 complications. Close attention to pulmonary toilet. (6) ELFEGO (obstructive sleep apnea) Is this a current diagnosis for this admission?: Yes Plan: CPAP nightly Will do overnight pulse oximetry study to determine if the patient requires home O2 at night. Outpatient overnight sleep study. (7) Prolonged QT interval Is this a current diagnosis for this admission?: Yes Plan: Improved; though QTc still 497 Continue to avoid Qt prolonging medications (zofran, azithromycin) - Time Time Spent with patient: 35 or more minutes Medications reviewed and adjusted accordingly: Yes Anticipated Discharge Disposition: Home, Self Care Anticipated Discharge Timeframe: within 72 hours
[2020-03-21] MEDS: ATORVASTATIN CALCIUM 40 MG TABLET PO SCH (22:04)
[2020-03-21] MEDS: DILTIAZEM HCL 120 MG CAP.SR.24H PO SCH (22:04)
[2020-03-22] MEDS: ALBUTEROL SULFATE 0.083% NEB 2.5 MG/3 ML AMPUL NEB SCH ×4 (02:15→20:22)
[2020-03-22] MEDS: DILTIAZEM HCL 60 MG TABLET PO SCH ×3 (03:19→12:30)
[2020-03-22] MEDS: METHYLPREDNISOLONE INJ 40 MG/1 ML SDV IV SCH ×3 (05:30→21:19)
[2020-03-22] MEDS: HYDRALAZINE HCL 50 MG TABLET PO SCH ×3 (05:31→21:19)
[2020-03-22] MEDS: DILTIAZEM HCL 120 MG CAP.SR.24H PO SCH ×2 (09:49→21:18)
[2020-03-22] MEDS: HYDROCHLOROTHIAZIDE 12.5 MG TABLET PO SCH (09:49)
[2020-03-22] MEDS: MAGNESIUM OXIDE 400 MG TABLET PO SCH (09:50)
[2020-03-22] MEDS: APIXABAN 5 MG TABLET PO SCH ×2 (09:50→17:52)
[2020-03-22] MEDS: LOSARTAN POTASSIUM 50 MG TABLET PO SCH (09:50)
[2020-03-22] MEDS: ASPIRIN 81 MG TABLET, ENT COATED PO SCH (09:50)
[2020-03-22] MEDS: DOCUSATE SODIUM 100 MG CAPSULE PO SCH (09:50)
[2020-03-22] MEDS: ZINC SULFATE 220 MG CAPSULE PO SCH (09:50)
[2020-03-22] MEDS: CHOLECALCIFEROL (D3) 1,000 UNIT (25 MCG) TABLET PO SCH (09:50)
[2020-03-22] MEDS: ASCORBIC ACID 500 MG TABLET PO SCH ×2 (09:53→17:52)
[2020-03-22 10:31] LABS: ARTERIAL BLOOD BASE EXCESS 0.6 mmol/L; ARTERIAL BLOOD H2CO3 1.26 mmol/L (1.05-1.35); ARTERIAL BLOOD HCO3 25.5 mmol/L (20-24); ARTERIAL BLOOD PCO2 41.9 mmHg (35-45); ARTERIAL BLOOD PO2 59.9 mmHg (80-100); ARTERIAL BLOOD TOTAL CO2 26.8 mmol/L (23-27)
[2020-03-22 10:34] LABS: ARTERIAL BLOOD FIO2 ROOM AIR
[2020-03-22] MEDS: REMDESIVIR 100 MG in NORMAL SALINE 250 ML IV SCH (11:56)
--- NOTE | 2020-03-22 12:37 | PDOC CONSULTATION ---
Consultation Consult Date: 03/22/20 Attending physician:: FAISAL LORD Provider Consulted: DON JETER Consult reason:: ELFEGO n [facility] History of Present Illness Admission Date/PCP: 03/18/20 15:09 JUSTEN WADE MD History of Present Illness: DENI LIM is a 54 year old male;Presented with increasing shortness of breath and a temperature that showed a biapical infiltrates he tested positive for Covid and lives at home with his sister who also has COVID-19. He denies hemoptysis PPD status is unknown no history of chronic lung disease as a child or adolescent he has a history of hypertension atrial fibrillation and obesity hypoventilation., Past Medical History Cardiac Medical History: Reports: Atrial Fibrillation, Hyperlipidema, Hypertension Denies: Congestive Heart Failure, Myocardial Infarction Pulmonary Medical History: Reports: Sleep Apnea EENT Medical History: Reports: None Neurological Medical History: Reports: None Endocrine Medical History: Reports: Obesity Renal/ Medical History: Reports: None Malignancy Medical History: Reports: None GI Medical History: Reports: None Musculoskeltal Medical History: Reports: None Skin Medical History: Reports: None Psychiatric Medical History: Reports: None Denies: Depression Traumatic Medical History: Reports: None Hematology: Reports: None Infectious Medical History: Reports: None Past Surgical History Past Surgical History: Reports: Appendectomy, Orthopedic Surgery - left shoulder Social History Information Source: [facility] Records Lives with: Family Smoking Status: Never Smoker Frequency of Alcohol Use: None Hx Recreational Drug Use: No Drugs: None Hx Prescription Drug Abuse: No Do you have pets?: No Have you had any respiratory illnesses as a child?: No Have you been exposed to any sick contacts recently?: Yes Have you had any recent respiratory illnesses?: Yes Have you travelled outside of [place] in the past 12 months?: No - Advance Directive Resuscitation Status: Full Code Family History Family History: Hypertension Parental Family History Reviewed: Yes Children Family History Reviewed: Yes Sibling(s) Family History Reviewed.: Yes Medication/Allergy Home Medications: Apixaban [Eliquis 5 mg Tablet] 5 mg PO BID 03/18/20 Atorvastatin Calcium [Lipitor 40 mg Tablet] 40 mg PO QHS 03/18/20 Furosemide [Lasix 40 mg Tablet] 40 mg PO QAM 03/18/20 Hydralazine HCl [Apresoline 50 mg Tablet] 100 mg PO Q8 03/18/20 Irbesartan/Hydrochlorothiazide [Irbesartan-Hctz 300-12.5 mg Tb] 1 each PO DAILY 03/18/20 Magnesium Oxide [Mag-Ox 400 mg Tablet] 400 mg PO DAILY 03/18/20 Metoprolol Succinate [Toprol Xl 50 mg Tab.sr] 150 mg PO Q12 03/18/20 Allergies/Adverse Reactions: No Known Allergies Allergy (Unverified 02/03/17 10:59) Review of Systems All systems: reviewed and no additional remarkable complaints except as stated Physical Exam Vital Signs: Temp Pulse Resp BP Pulse Ox 97.5 F 85 15 167/86 H 93 03/22/20 08:04 03/22/20 08:27 03/22/20 08:27 03/22/20 08:04 03/22/20 08:27 Pulse Oximeter Nocturnal Start: 03/21/20 16:48 Freq: RTQ4 Status: Complete Protocol: Document 03/22/20 05:01 [facility] (Rec: 03/22/20 05:02 [facility] [id number]) Nocturnal Pulse Oximetry Equipment Usage Equipment Discontinued Continuous SpO2 Machine # [id number] Intake & Output 03/21/20 03/22/20 03/23/20 06:59 06:59 06:59 Intake Total 1806 1706 Output Total 450 Balance 1356 1706 Weight 189.2 kg General appearance: PRESENT: no acute distress, cooperative, disheveled, morbidly obese, well-developed, well-nourished Head exam: PRESENT: atraumatic, normocephalic Eye exam: PRESENT: conjunctiva pale, EOMI. ABSENT: nystagmus, periorbital swelling, scleral icterus Mouth exam: PRESENT: dry mucosa, neck supple, tongue midline Neck exam: ABSENT: carotid bruit, full ROM, JVD, lymphadenopathy, meningismus, tenderness, thyromegaly, tracheal deviation, tracheostomy, other Respiratory exam: PRESENT: decreased breath sounds, prolonged expiratory phas, rales, rhonchi, symmetrical, unlabored. ABSENT: retraction, stridor, tachypnea Cardiovascular exam: PRESENT: irregular rhythm. ABSENT: tachycardia Pulses: PRESENT: normal radial pulses GI/Abdominal exam: PRESENT: soft. ABSENT: guarding, mass, rebound, tenderness Extremities exam: PRESENT: full ROM. ABSENT: calf tenderness, clubbing, joint swelling, pedal edema Musculoskeletal exam: PRESENT: full ROM. ABSENT: deformity, dislocation Neurological exam: PRESENT: alert, awake Psychiatric exam: PRESENT: appropriate affect Skin exam: PRESENT: dry, warm Results Laboratory Results: 03/21/20 05:12 03/21/20 05:12 03/22/20 10:04 Carbonic Acid 1.26 HCO3/H2CO3 Ratio 20:1 ABG pH 7.40 ABG pCO2 41.9 ABG pO2 59.9 L ABG HCO3 25.5 H ABG O2 Saturation 91.0 L ABG Base Excess 0.6 FiO2 ROOM AIR 03/21/20 03/22/20 05:12 04:45 Creatine Kinase 149 173 H Impressions: Chest X-Ray 03/18/20 09:13 IMPRESSION: Dense upper lobe opacities suspicious for covid 19. Cardiac enlargement without failure. Assessment & Plan - Diagnosis (1) Obesity hypoventilation syndrome Is this a current diagnosis for this admission?: Yes Plan: The above patient has failed BiPAP with a patent airway. This patient would benefit from noninvasive mechanical ventilation via the trilogy AVAPS/AE and faster responding AVAPS rates. The trilogy is able to provide a target tidal volume and also adjusting the EPAP pressures to maintain a patent airway as well as an oral backup rate this machine will help improve PaCO2 levels. The severity of the patient's condition will lead to future hospitalizations and readmissions as well as life-threatening situations without the use of this device day and night. Trilogy home vent needed for hypercapnic respiratory failu re. [facility] or [facility] to follow for trilogy set up. (2) Acute respiratory failure due to COVID-19 Is this a current diagnosis for this admission?: Yes Plan: Improving (3) Chronic atrial fibrillation with RVR Is this a current diagnosis for this admission?: Yes Plan: Rate controlled at this time (4) Morbid obesity with BMI of 50.0-59.9, adult Is this a current diagnosis for this admission?: Yes Plan: Consider dietary consult bariatric surgery (5) ELFEGO (obstructive sleep apnea) Is this a current diagnosis for this admission?: Yes Plan: The above patient has failed BiPAP with a patent airway. This patient would benefit from noninvasive mechanical ventilation via the trilogy AVAPS/AE and faster responding AVAPS rates. The trilogy is able to provide a target tidal volume and also adjusting the EPAP pressures to maintain a patent airway as well as an oral backup rate this machine will help improve PaCO2 levels. The severity of the patient's condition will lead to future hospitalizations and readmissions as well as life-threatening situations without the use of this device day and night. Trilogy home vent needed for hypercapnic respiratory failure. [facility] to follow for trilogy set up. - Time Time Spent with patient: 50 minutes
--- NOTE | 2020-03-22 14:30 | RADIOLOGY REPORT (SQ) ---
EXAM DESCRIPTION: CHEST SINGLE VIEW IMAGES COMPLETED DATE/TIME: 03/22/2020 2:15 pm REASON FOR STUDY: increased sputum production, dyspnea COMPARISON: 03/18/2020 EXAM PARAMETERS: NUMBER OF VIEWS: One view. TECHNIQUE: Single frontal radiographic view of the chest acquired. RADIATION DOSE: NA LIMITATIONS: None. FINDINGS: LUNGS AND PLEURA: Diminished, albeit persistent bilateral upper lobe airspace opacities. No new focal consolidation. No pleural effusion. No pneumothorax. MEDIASTINUM AND HILAR STRUCTURES: No masses. Contour normal. HEART AND VASCULAR STRUCTURES: Heart normal in size. Normal vasculature. BONES: No acute findings. HARDWARE: None in the chest. OTHER: No other significant finding. IMPRESSION: Improved pulmonary examination demonstrating diminished, albeit persistent, upper lobe a irspace opacities. TECHNICAL DOCUMENTATION: JOB ID: [id number] 2010 [employer]- All Rights Reserved Reading location - IP/workstation name: [email or web address]
--- NOTE | 2020-03-22 15:13 | PDOC PROGRESS REPORT ---
Subjective Date:: 03/22/20 Subjective:: DENI LIM is a 54 year old male with a past medical history of persistent atrial fibrillation, hypertension, hyperlipidemia, and morbid obesity who was admitted 03/18/20 with atrial fibrillation RVR and suspected COVID pneumonia. The patient was seen on afternoon rounds. Was found sitting up to the recliner, comfortably, on room air. He did utilize CPAP with 4 to 5 L/min overnight. He states that he is feeling better today. He continues to be fatigued and feels that he would be short of breath if he were to ambulate any amount of distance, however, he has been comfortable moving about his room today. He does continue to have a productive cough. Otherwise his symptoms are improved. He denies fever (T-max 99.0/48 hrs), chills, abdominal pain, nausea, vomiting, diarrhea. He has no other questions or concerns at this time. No concerns per nursing. Reason For Visit: COVID PNEUMONIA,A FIB RVR Physical Exam Vital Signs: Temp Pulse Resp BP Pulse Ox 97.6 F 98 16 161/93 H 92 03/22/20 11:28 03/22/20 14:14 03/22/20 14:14 03/22/20 11:28 03/22/20 14:14 Pulse Oximeter Nocturnal Start: 03/21/20 16:48 Freq: RTQ4 Status: Complete Protocol: Document 03/22/20 05:01 [facility] (Rec: 03/22/20 05:02 [facility] [id number]) Nocturnal Pulse Oximetry Equipment Usage Equipment Discontinued Continuous SpO2 Machine # [id number] Intake & Output 03/21/20 03/22/20 03/23/20 06:59 06:59 06:59 Intake Total 1806 1706 510 Output Total 450 Balance 1356 1706 510 Weight 189.2 kg General appearance: PRESENT: no acute distress, cooperative - pleasant, morbidly obese, well-developed, well-nourished Head exam: PRESENT: atraumatic, normocephalic Eye exam: PRESENT: conjunctiva pink, EOMI, PERRLA. ABSENT: scleral icterus Mouth exam: PRESENT: moist, tongue midline Respiratory exam: PRESENT: clear to auscultation keenan, rhonchi - scant, symmetrical, unlabored. ABSENT: rales, wheezes Cardiovascular exam: PRESENT: RRR. ABSENT: diastolic murmur, rubs, systolic murmur Vascular exam: PRESENT: normal capillary refill Rectal exam: PRESENT: deferred Extremities exam: PRESENT: full ROM. ABSENT: calf tenderness, clubbing, pedal edema Musculoskeletal exam: PRESENT: ambulatory Neurological exam: PRESENT: alert, awake, oriented to person, oriented to place, oriented to time, oriented to situation, CN II-XII grossly intact. ABSENT: motor sensory deficit Psychiatric exam: PRESENT: appropriate affect, normal mood. ABSENT: homicidal ideation, suicidal ideation Skin exam: PRESENT: dry, intact, warm. ABSENT: cyanosis, rash Results Laboratory Results: 03/21/20 05:12 03/21/20 05:12 03/22/20 10:04 Carbonic Acid 1.26 HCO3/H2CO3 Ratio 20:1 ABG pH 7.40 ABG pCO2 41.9 ABG pO2 59.9 L ABG HCO3 25.5 H ABG O2 Saturation 91.0 L ABG Base Excess 0.6 FiO2 ROOM AIR 03/21/20 03/22/20 05:12 04:45 Creatine Kinase 149 173 H Impressions: Chest X-Ray 03/22/20 00:00 IMPRESSION: Improved pulmonary examination demonstrating diminished, albeit persistent, upper lobe airspace opacities. Assessment and Plan - Diagnosis (1) Pneumonia due to 2019-nCoV Is this a current diagnosis for this admission?: Yes Plan: COVID positive CXR is consistent with covid PNA Repeat chest x-ray shows slightly improved aeration. D-dimer, ferritin, and CRP are normal. Sputum culture pending. Provide supplemental oxygen as needed maintain saturations greater than 89%. CPAP nightly and prn. Scheduled and as needed nebulizer treatments. Continue Remdesivir Continue IV solu-medrol Zinc, vitamin D, vitamin C, and melatonin supplementation. Daily aspirin and statin therapy. Encourage pulmonary toilet. Isolation precautions. Neurology consulted. Will not be able to utilize Azithromycin 2/2 prolonged qTc interval. Patient currently declines convalescent plasma and ivermectin (2) Acute respiratory failure due to COVID-19 Is this a current diagnosis for this admission?: Yes Plan: Improved; now maintaining oxygen saturations on room air while awake. CPAP w/ supplemental O2 while sleeping; chronic related to ELFEGO/obesity hypoventilation syndrome, worsened by acute viral pneumonia.. Remaining evaluation and management as above. (3) HTN (hypertension) Qualifiers: Hypertension type: essential hypertension Qualified Code(s): I10 - Essential (primary) hypertension Is this a current diagnosis for this admission?: Yes Plan: Adequate blood pressure control at present, though slightly elevate. Patient states that he previously had severly elevated BP requiring ~7 medicatio ns. Continue diltiazem cd 120 mg every 12 hours. Continue losartan 100 mg daily and hydrochlorothiazide 12.5 mg daily. Continue hydralazine 50 mg every 8 hours (previously prescribed 100 mg every 8). Cardiac diet. (4) Chronic atrial fibrillation with RVR Is this a current diagnosis for this admission?: Yes Plan: Improved; now rate controlled on diltiazem. Intermittent, mild, tachycardia acceptable given his current acute respiratory failure and Covid viral infection. Patient w/ chronic, persistent, a. fib. Typically is rate controlled in 70s-80s per patient. Patient is admitted to [facility] on continuous cardiac telemetry. Continue home dose Eliquis. Received diltiazem drip; titrated per protocol until rate control achieved. Now transitioned to oral diltiazem 120 mg cd q12h; continues to remain rate controlled. 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 (5) Morbid obesity with BMI of 50.0-59.9, adult Is this a current diagnosis for this admission?: Yes Plan: Dietary discretion and lifestyle modification encouraged. Cardiac diet. Patient's body habitus/BMI place him at high risk for COVID 19 complications. Patient's body habitus/BMI are contributing to his ELFEGO/obesity hypoventilation syndrome. Close attention to pulmonary toilet. (6) ELFEGO (obstructive sleep apnea) Is this a current diagnosis for this admission?: Yes Plan: CPAP nightly Overnight pulse oximetry completed. Discussed results with Dr. Paulino. Patient likely qualifies for BiPAP or Trilogy device Pulmonology consulted; appreciate Dr. Paulino's assistance. (7) Prolonged QT interval Is this a current diagnosis for this admission?: Yes Plan: Improved; though QTc still 497 Continue to avoid Qt prolonging medications (zofran, azithromycin) - Time Time Spent with patient: 25-34 minutes Medications reviewed and adjusted accordingly: Yes Anticipated Discharge Disposition: Home, Self Care Anticipated Discharge Timeframe: within 72 hours
[2020-03-22] MEDS: ATORVASTATIN CALCIUM 40 MG TABLET PO SCH (21:19)
[2020-03-23] MEDS: ALBUTEROL SULFATE 0.083% NEB 2.5 MG/3 ML AMPUL NEB SCH ×3 (01:51→14:13)
[2020-03-23] MEDS: METHYLPREDNISOLONE INJ 40 MG/1 ML SDV IV SCH ×2 (05:02→13:39)
[2020-03-23] MEDS: HYDRALAZINE HCL 50 MG TABLET PO SCH ×3 (05:02→21:05)
[2020-03-23] MEDS: MAGNESIUM OXIDE 400 MG TABLET PO SCH (10:01)
[2020-03-23] MEDS: APIXABAN 5 MG TABLET PO SCH ×2 (10:01→17:18)
[2020-03-23] MEDS: CHOLECALCIFEROL (D3) 1,000 UNIT (25 MCG) TABLET PO SCH (10:01)
[2020-03-23] MEDS: DOCUSATE SODIUM 100 MG CAPSULE PO SCH (10:01)
[2020-03-23] MEDS: ASPIRIN 81 MG TABLET, ENT COATED PO SCH (10:01)
[2020-03-23] MEDS: HYDROCHLOROTHIAZIDE 12.5 MG TABLET PO SCH (10:01)
[2020-03-23] MEDS: DILTIAZEM HCL 120 MG CAP.SR.24H PO SCH ×2 (10:02→21:05)
[2020-03-23] MEDS: ZINC SULFATE 220 MG CAPSULE PO SCH (10:02)
[2020-03-23] MEDS: LOSARTAN POTASSIUM 50 MG TABLET PO SCH (10:02)
[2020-03-23] MEDS: ASCORBIC ACID 500 MG TABLET PO SCH ×2 (10:02→17:18)
[2020-03-23] MEDS: REMDESIVIR 100 MG in NORMAL SALINE 250 ML IV SCH (10:03)
--- NOTE | 2020-03-23 15:25 | PDOC PROGRESS REPORT ---
Subjective Date:: 03/23/20 Subjective:: DENI LIM is a 54 year old male with a past medical history of persistent atrial fibrillation, hypertension, hyperlipidemia, and morbid obesity who was admitted 03/18/20 with atrial fibrillation RVR and suspected COVID pneumonia. The patient was seen on afternoon rounds. Was found sitting up to the recliner, comfortably, on room air. He states that he is feeling better today. He continues to be fatigued with slight dyspnea and occasional cough; all somewhat improved. Reports bilateral pedal swelling; believes this is r/t not being on his home dose furosemide. Dnies hx of CHF. Afebrile x 48 hrs He denies fever, chills, abdominal pain, nausea, vomiting, diarrhea. He has no other questions or concerns at this time. No concerns per nursing. Reason For Visit: COVID PNEUMONIA,A FIB RVR Physical Exam Vital Signs: Temp Pulse Resp BP Pulse Ox 97.8 F 94 16 143/87 H 95 03/23/20 11:23 03/23/20 14:13 03/23/20 14:13 03/23/20 11:23 03/23/20 14:13 Pulse Oximeter Nocturnal Start: 03/21/20 16:48 Freq: RTQ4 Status: Complete Protocol: Document 03/22/20 05:01 [facility] (Rec: 03/22/20 05:02 [facility] [id number]) Nocturnal Pulse Oximetry Equipment Usage Equipment Discontinued Continuous SpO2 Machine # [id number] Intake & Output 03/22/20 03/23/20 03/24/20 06:59 06:59 06:59 Intake Total 1706 2335 250 Balance 1706 2335 250 Weight 189.2 kg General appearance: PRESENT: no acute distress, cooperative, morbidly obese, well-developed, well-nourished Head exam: PRESENT: atraumatic, normocephalic Eye exam: PRESENT: conjunctiva pink, EOMI, PERRLA. ABSENT: scleral icterus Mouth exam: PRESENT: moist, tongue midline Respiratory exam: PRESENT: clear to auscultation keenan, rhonchi - scant bibasilar, symmetrical, unlabored, other - room air. ABSENT: rales, wheezes Cardiovascular exam: PRESENT: irregular rhythm, +S1, +S2. ABSENT: diastolic murmur, rubs, systolic murmur Pulses: PRESENT: normal dorsalis pedis pul Vascular exam: PRESENT: normal capillary refill GI/Abdominal exam: PRESENT: normal bowel sounds, soft. ABSENT: distended, guarding, mass, organolmegaly, rebound, tenderness Rectal exam: PRESENT: deferred Extremities exam: PRESENT: full ROM, pedal edema, +1 edema - ble. ABSENT: calf tenderness, clubbing Musculoskeletal exam: PRESENT: ambulatory Neurological exam: PRESENT: alert, awake, oriented to person, oriented to place, oriented to time, oriented to situation, CN II-XII grossly intact. ABSENT: motor sensory deficit Psychiatric exam: PRESENT: appropriate affect, normal mood. ABSENT: homicidal ideation, suicidal ideation Skin exam: PRESENT: dry, intact, warm. ABSENT: cyanosis, rash Results Laboratory Results: 03/21/20 05:12 03/21/20 05:12 03/21/20 03/22/20 03/23/20 05:12 04:45 04:57 Creatine Kinase 149 173 H 79 NT-Pro-B Natriuret Pep 03/23/20 04:57 Creatine Kinase NT-Pro-B Natriuret Pep 283 H Impressions: Chest X-Ray 03/22/20 00:00 IMPRESSION: Improved pulmonary examination demonstrating diminished, albeit persistent, upper lobe airspace opacities. Assessment and Plan - Diagnosis (1) Pneumonia due to 2019-nCoV Is this a current diagnosis for this admission?: Yes Plan: COVID positive CXR is consistent with covid PNA Repeat chest x-ray shows slightly improved aeration. D-dimer, ferritin, and CRP are normal. Sputum culture pending. Provide supplemental oxygen as needed maintain saturations greater than 89%. CPAP nightly and prn. Now maintaining oxygen saturations on room air while awake. Scheduled and as needed nebulizer treatments. Continue Remdesivir Continue IV solu-medrol; transition to prednisone today. Zinc, vitamin D, vitamin C, and melatonin supplementation. Daily aspirin and statin therapy. Encourage pulmonary toilet. Isolation precautions. Neurology consulted. Will not be able to utilize Azithromycin 2/2 prolonged qTc interval. Patient currently declines convalescent plasma and ivermectin (2) Acute respiratory failure due to COVID-19 Is this a current diagnosis for this admission?: Yes Plan: Resolved. Nnow maintaining oxygen saturations on room air while awake. CPAP w/ supplemental O2 while sleeping; chronic related to ELFEGO/obesity hypoventilation syndrome, worsened by acute viral pneumonia.. Remaining evaluation and management as described elsewhere. (3) HTN (hypertension) Qualifiers: Hypertension type: essential hypertension Qualified Code(s): I10 - Essential (primary) hypertension Is this a current diagnosis for this admission?: Yes Plan: Improved blood pressure control. Remain slightly elevated, though overall acceptable. Patient states that he previously had severly elevated BP requiring ~7 medications. Continue diltiazem cd 120 mg every 12 hours. Continue losartan 100 mg daily and hydrochlorothiazide 12.5 mg daily. Continue hydralazine 50 mg every 8 hours (previously prescribed 100 mg every 8). Cardiac diet. (4) Chronic atrial fibrillation with RVR Is this a current diagnosis for this admission?: Yes Plan: Improved; now rate controlled on oral diltiazem. Patient w/ chronic, persistent, a. fib. Typically is rate controlled in 70s-80s per patient. Patient is admitted to [facility] on continuous cardiac telemetry. Continue home dose Eliquis. Received diltiazem drip; titrated per protocol until rate control achieved. Now transitioned to oral diltiazem 120 mg cd q12h; continues to remain rate controlled. Outpatient follow up with established black top raker. (5) Morbid obesity with BMI of 50.0-59.9, adult Is this a current diagnosis for this admission?: Yes Plan: Dietary discretion and lifestyle modification encouraged. Cardiac diet. Patient's body habitus/BMI place him at high risk for COVID 19 complications. Patient's body habitus/BMI are contributing to his ELFEGO/obesity hypoventilation s yndrome. Close attention to pulmonary toilet. (6) ELFEGO (obstructive sleep apnea) Is this a current diagnosis for this admission?: Yes Plan: CPAP nightly Overnight pulse oximetry completed. Discussed results with Dr. Paulino. Pulmonology consulted; appreciate Dr. Paulino's assistance. Has recommended discharge w/ Trilogy device. Discharge planning consulted. (7) Prolonged QT interval Is this a current diagnosis for this admission?: Yes Plan: Improved; though QTc still 497 Continue to avoid Qt prolonging medications (zofran, azithromycin) (8) Obesity hypoventilation syndrome Is this a current diagnosis for this admission?: Yes Plan: BMI 53.6 Overnight pulse oximetry completed. Discussed results with Dr. Paulino. Pulmonology consulted; appreciate Dr. Paulino's assistance. Has recommended discharge w/ Trilogy device. Discharge planning consulted. - Time Time Spent with patient: 25-34 minutes Medications reviewed and adjusted accordingly: Yes Anticipated Discharge Disposition: Home, Self Care Anticipated Discharge Timeframe: within 24 hours - pending Trilogy
[2020-03-23] MEDS ORDERED: FUROSEMIDE INJ/PF 20 MG/2 ML SDV IV ONE (16:00)
[2020-03-23] MEDS: ATORVASTATIN CALCIUM 40 MG TABLET PO SCH (21:05)
[2020-03-24] MEDS: HYDRALAZINE HCL 50 MG TABLET PO SCH ×3 (05:42→21:34)
[2020-03-24] MEDS: PREDNISONE 20 MG TABLET PO SCH (09:35)
[2020-03-24] MEDS: FUROSEMIDE 40 MG TABLET PO SCH (09:35)
[2020-03-24] MEDS: APIXABAN 5 MG TABLET PO SCH ×2 (09:35→17:11)
[2020-03-24] MEDS: DILTIAZEM HCL 120 MG CAP.SR.24H PO SCH ×2 (09:35→21:33)
[2020-03-24] MEDS: ASPIRIN 81 MG TABLET, ENT COATED PO SCH (09:35)
[2020-03-24] MEDS: CHOLECALCIFEROL (D3) 1,000 UNIT (25 MCG) TABLET PO SCH (09:35)
[2020-03-24] MEDS: ZINC SULFATE 220 MG CAPSULE PO SCH (09:35)
[2020-03-24] MEDS: HYDROCHLOROTHIAZIDE 12.5 MG TABLET PO SCH (09:35)
[2020-03-24] MEDS: MAGNESIUM OXIDE 400 MG TABLET PO SCH (09:36)
[2020-03-24] MEDS: LOSARTAN POTASSIUM 50 MG TABLET PO SCH (09:36)
[2020-03-24] MEDS: DOCUSATE SODIUM 100 MG CAPSULE PO SCH (09:36)
[2020-03-24] MEDS: ASCORBIC ACID 500 MG TABLET PO SCH ×2 (09:36→17:11)
[2020-03-24] MEDS ORDERED: FUROSEMIDE INJ/PF 20 MG/2 ML SDV IV SCH (10:00)
[2020-03-24] MEDS: REMDESIVIR 100 MG in NORMAL SALINE 250 ML IV SCH (10:26)
[2020-03-24] MEDS ORDERED: FUROSEMIDE INJ/PF 20 MG/2 ML SDV IV ONE (14:37)
--- NOTE | 2020-03-24 15:38 | PDOC PROGRESS REPORT ---
Subjective Date:: 03/24/20 Subjective:: DENI LIM is a 54 year old male with a past medical history of persistent atrial fibrillation, hypertension, hyperlipidemia, and morbid obesity who was admitted 03/18/20 with atrial fibrillation RVR and suspected COVID pneumonia. The patient was seen on afternoon rounds. Was found sitting up to the recliner, comfortably, on room air. He states that he is feeling better today. Fatigue, dyspnea, and cough are all improved. Pedal swelling has resolved. Overall fee ling well. Afebrile >48 hrs He denies fever, chills, abdominal pain, nausea, vomiting, diarrhea. He has no other questions or concerns at this time. No concerns per nursing. Reason For Visit: COVID PNEUMONIA,A FIB RVR Physical Exam Vital Signs: Temp Pulse Resp BP Pulse Ox 97.6 F 66 20 160/93 H 97 03/24/20 11:39 03/24/20 11:39 03/24/20 11:39 03/24/20 11:39 03/24/20 15:05 Pulse Oximeter Nocturnal Start: 03/21/20 16:48 Freq: RTQ4 Status: Complete Protocol: Document 03/22/20 05:01 [facility] (Rec: 03/22/20 05:02 [facility] [id number]) Nocturnal Pulse Oximetry Equipment Usage Equipment Discontinued Continuous SpO2 Machine # [id number] Intake & Output 03/23/20 03/24/20 03/25/20 06:59 06:59 06:59 Intake Total 2335 1632 Balance 2335 1632 Weight 189.2 kg 189.5 kg General appearance: PRESENT: no acute distress, cooperative - pleasant, morbidly obese, well-developed, well-nourished Head exam: PRESENT: atraumatic, normocephalic Eye exam: PRESENT: conjunctiva pink, EOMI, PERRLA. ABSENT: scleral icterus Mouth exam: PRESENT: moist, tongue midline Respiratory exam: PRESENT: clear to auscultation keenan, symmetrical, unlabored, other - room air. ABSENT: rales, rhonchi, wheezes Cardiovascular exam: PRESENT: RRR. ABSENT: diastolic murmur, rubs, systolic murmur Pulses: PRESENT: normal dorsalis pedis pul Vascular exam: PRESENT: normal capillary refill Extremities exam: PRESENT: full ROM, pedal edema - trace. ABSENT: calf tenderness, clubbing Neurological exam: PRESENT: alert, awake, oriented to person, oriented to place, oriented to time, oriented to situation, CN II-XII grossly intact. ABSENT: motor sensory deficit Psychiatric exam: PRESENT: appropriate affect, normal mood. ABSENT: homicidal ideation, suicidal ideation Skin exam: PRESENT: dry, intact, warm. ABSENT: cyanosis, rash Results Laboratory Results: 03/21/20 05:12 03/21/20 05:12 03/21/20 11:07 Sputum Gram Stain - Final 03/21/20 11:07 Sputum Sputum Culture - Final NORMAL ESTEBAN 03/21/20 03/22/20 03/23/20 05:12 04:45 04:57 Creatine Kinase 149 173 H 79 NT-Pro-B Natriuret Pep 03/23/20 03/24/20 04:57 04:51 Creatine Kinase 90 NT-Pro-B Natriuret Pep 283 H Impressions: Chest X-Ray 03/22/20 00:00 IMPRESSION: Improved pulmonary examination demonstrating diminished, albeit persistent, upper lobe airspace opacities. Assessment and Plan - Diagnosis (1) Obesity hypoventilation syndrome Is this a current diagnosis for this admission?: Yes Plan: BMI 53.6 Overnight pulse oximetry completed. Discussed results with Dr. Paulino. Pulmonology consulted; appreciate Dr. Paulino's assistance. Has recommended discharge w/ Trilogy device. BiPAP tonight to evaluate tolerance; having difficulty arranging Trilogy Discharge planning consulted. (2) Pneumonia due to 2019-nCoV Is this a current diagnosis for this admission?: Yes Plan: Significantly improved; afebrile and asymptomatic COVID positive CXR is consistent with covid PNA Repeat chest x-ray shows slightly improved aeration. D-dimer, ferritin, and CRP are normal. Sputum culture pending. Completed Remdesivir. Continue prednisone; slow wean. Zinc, vitamin D, vitamin C, and melatonin supplementation. Daily aspirin and statin therapy. Encourage pulmonary toilet. Isolation precautions. Pulmonology consulted. (3) Acute respiratory failure due to COVID-19 Is this a current diagnosis for this admission?: Yes Plan: Resolved. Nnow maintaining oxygen saturations on room air. Chronic respiratory failure related to ELFEGO/obesity hypoventilation syndrome, worsened by acute viral pneumonia.. Remaining evaluation and management as described elsewhere. (4) HTN (hypertension) Qualifiers: Hypertension type: essential hypertension Qualified Code(s): I10 - Esse ntial (primary) hypertension Is this a current diagnosis for this admission?: Yes Plan: Improved blood pressure control. Remain slightly elevated, though overall acceptable. Patient states that he previously had severly elevated BP requiring ~7 medications. Continue diltiazem cd 120 mg every 12 hours. Continue losartan 100 mg daily and hydrochlorothiazide 12.5 mg daily. Continue hydralazine 50 mg every 8 hours (previously prescribed 100 mg every 8). Cardiac diet. (5) Chronic atrial fibrillation with RVR Is this a current diagnosis for this admission?: Yes Plan: Improved; now rate controlled on oral diltiazem. Patient w/ chronic, persistent, a. fib. Typically is rate controlled in 70s-80s per patient. Patient is admitted to [facility] on continuous cardiac telemetry. Continue home dose Eliquis. Received diltiazem drip; titrated per protocol until rate control achieved. Now transitioned to oral diltiazem 120 mg cd q12h; continues to remain rate controlled. Outpatient follow up with established insolvency consultant. (6) Morbid obesity with BMI of 50.0-59.9, adult Is this a current diagnosis for this admission?: Yes Plan: Dietary discretion and lifestyle modification encouraged. Cardiac diet. Patient's body habitus/BMI place him at high risk for COVID 19 complications. Patient's body habitus/BMI are contributing to his ELFEGO/obesity hypoventilation syndrome. Close attention to pulmonary toilet. (7) ELFEGO (obstructive sleep apnea) Is this a current diagnosis for this admission?: Yes Plan: BiPAP tonight to evaluate tolerance; having difficulty arranging Trilogy Overnight pulse oximetry completed. Discussed results with Dr. Paulino. Pulmonology consulted; appreciate Dr. Paulino's assistance. Has recommended discharge w/ Trilogy device. Discharge planning consulted. (8) Prolonged QT interval Is this a current diagnosis for this admission?: Yes Plan: Improved; though QTc still 497 Continue to avoid Qt prolonging medications (zofran, azithromycin) - Plan Summary Summary: Overnight pulse oximetry study completed; started on room air with titration of oxygen based on saturations. At 5 L/min via nasal cannula, the patient had a 32-second desaturation event to 77% SpO2. Patient had >99% desats over course of the study. Patient was referred to pulmonolgoy who has recommended Trilogy. Oxygen company is requiring PFT prior to authorizing device. Unfortunately, the only PFT equipment in the hospital is broken and the patient is not safe for discharge w/out equipment related to the severe/prolonged desaturation events documented in his overnight study; to the extent that the patient is at risk for sudden w/o equipment directed toward treatment of his ELFEGO/obesity hypoventilation syndrome. Patient has been supported w/ CPAP with O2 bleed in; he has done well with CPAP/PEEP 14 and FiO2 28%. In anticipation of potential difficulty arranging for CPAP w/o formal overnight study, will trial BiPAP tonight to prove its efficacy, as well. Ultimately, patient may need to be arranged to discharge on day of/directly to overnight sleep study with equipment prior authorized pending study results, so that it can be delivered the following day to ensure there is no lapse in treatment. This has been arranged in the past, though rarely and prior to COVID pandemic. Discharge planning is consulted and aware of need to prioritize patient's case on Thursday. - Time Time Spent with patient: 35 or more minutes Medications reviewed and adjusted accordingly: Yes Anticipated Discharge Disposition: Home, Self Care Anticipated Discharge Timeframe: pend DME
[2020-03-24] MEDS: ATORVASTATIN CALCIUM 40 MG TABLET PO SCH (21:33)
[2020-03-25] MEDS: HYDRALAZINE HCL 50 MG TABLET PO SCH ×3 (05:56→21:22)
[2020-03-25] MEDS: DOCUSATE SODIUM 100 MG CAPSULE PO SCH (09:53)
[2020-03-25] MEDS: ZINC SULFATE 220 MG CAPSULE PO SCH (09:53)
[2020-03-25] MEDS: HYDROCHLOROTHIAZIDE 12.5 MG TABLET PO SCH (09:53)
[2020-03-25] MEDS: ASPIRIN 81 MG TABLET, ENT COATED PO SCH (09:53)
[2020-03-25] MEDS: CHOLECALCIFEROL (D3) 1,000 UNIT (25 MCG) TABLET PO SCH (09:53)
[2020-03-25] MEDS: FUROSEMIDE 40 MG TABLET PO SCH (09:53)
[2020-03-25] MEDS: APIXABAN 5 MG TABLET PO SCH ×2 (09:53→17:30)
[2020-03-25] MEDS: DILTIAZEM HCL 120 MG CAP.SR.24H PO SCH ×2 (09:53→21:22)
[2020-03-25] MEDS: LOSARTAN POTASSIUM 50 MG TABLET PO SCH (09:54)
[2020-03-25] MEDS: MAGNESIUM OXIDE 400 MG TABLET PO SCH (09:54)
[2020-03-25] MEDS: PREDNISONE 20 MG TABLET PO SCH (09:54)
[2020-03-25] MEDS: ASCORBIC ACID 500 MG TABLET PO SCH ×2 (09:56→17:30)
--- NOTE | 2020-03-25 11:16 | PDOC PROGRESS REPORT ---
Subjective Date:: 03/25/20 Subjective:: DENI LIM is a 54 year old male with a past medical history of persistent atrial fibrillation, hypertension, hyperlipidemia, and morbid obesity who was admitted 03/18/20 with atrial fibrillation RVR and suspected COVID pneumonia. The patient was seen on morning rounds. Was found sitting up to the recliner, comfortably, on room air. He states that he is feeling better today. Fatigue, dyspnea, and cough are all improved. Did not sleep as well last night due to multiple episodes of hypoxia; trialed BiPAP on room air. Pedal swelling has improved. Overall feeling well. Afebrile >72 hrs He denies fever, chills, abdominal pain, nausea, vomiting, diarrhea. He has no other questions or concerns at this time. No concerns per nursing. Reason For Visit: COVID PNEUMONIA,A FIB RVR Physical Exam Vital Signs: Temp Pulse Resp BP Pulse Ox 97.5 F 41 L 18 150/97 H 97 03/25/20 08:00 03/25/20 07:31 03/25/20 07:31 03/25/20 07:31 03/25/20 07:31 Pulse Oximeter Nocturnal Start: 03/21/20 16:48 Freq: RTQ4 Status: Complete Protocol: Document 03/22/20 [facility] (Rec: 03/22/20 05:[facility] [id number]) Nocturnal Pulse Oximetry Equipment Usage Equipment Discontinued Continuous SpO2 Machine # [id number] Intake & Output 03/24/20 03/25/20 03/26/20 06:59 06:59 06:59 Intake Total 1632 770 Output Total 600 Balance 1632 170 Weight 189.5 kg 189.5 kg General appearance: PRESENT: no acute distress, cooperative - Pleasant, morbidly obese, well-developed, well-nourished Head exam: PRESENT: atraumatic, normocephalic Eye exam: PRESENT: conjunctiva pink, EOMI, PERRLA. ABSENT: scleral icterus Mouth exam: PRESENT: moist, tongue midline Respiratory exam: PRESENT: clear to auscultation keenan, symmetrical, unlabored - Room air while awake. ABSENT: rales, rhonchi, wheezes Cardiovascular exam: PRESENT: RRR, +S1, +S2. ABSENT: diastolic murmur, rubs, systolic murmur Pulses: PRESENT: normal dorsalis pedis pul Vascular exam: PRESENT: normal capillary refill Extremities exam: PRESENT: full ROM, pedal edema - +1 bilaterally. ABSENT: calf tenderness, clubbing Musculoskeletal exam: PRESENT: ambulatory Neurological exam: PRESENT: alert, awake, oriented to person, oriented to place, oriented to time, oriented to situation, CN II-XII grossly intact. ABSENT: motor sensory deficit Psychiatric exam: PRESENT: appropriate affect, normal mood. ABSENT: homicidal ideation, suicidal ideation Skin exam: PRESENT: dry, intact, warm. ABSENT: cyanosis, rash Results Laboratory Results: 03/21/20 05:12 03/21/20 05:12 03/21/20 03/22/20 03/23/20 05:12 04:45 04:57 Creatine Kinase 149 173 H 79 NT-Pro-B Natriuret Pep 03/23/20 03/24/20 03/25/20 04:57 04:51 05:32 Creatine Kinase 90 96 NT-Pro-B Natriuret Pep 283 H Impressions: Chest X-Ray 03/22/20 00:00 IMPRESSION: Improved pulmonary examination demonstrating diminished, albeit persistent, upper lobe airspace opacities. Assessment and Plan - Diagnosis (1) Obesity hypoventilation syndrome Is this a current diagnosis for this admission?: Yes Plan: BMI 53.6 Overnight pulse oximetry completed. Discussed results with Dr. Paulino. Pulmonology consulted; appreciate Dr. Paulino's assistance. Has recommended discharge w/ Trilogy device. Due to difficulty arranging trilogy device (insurance, prior Auth, weekend), we trialed BiPAP on room air overnight. Patient had multiple desaturation events. He has tolerated CPAP with 2 L/min several nights without hypoxia. Believe this would be a viable option if the trilogy is not approved. Discharge planning consulted; have discussed in detail. (2) Pneumonia due to 2019-nCoV Is this a current diagnosis for this admission?: Yes Plan: Significantly improved; afebrile and asymptomatic COVID positive CXR is consistent with covid PNA Repeat chest x-ray shows slightly improved aeration. D-dimer, ferritin, and CRP are normal. Sputum culture pending. Completed Remdesivir. Continue prednisone; slow wean. Zinc, vitamin D, vitamin C, and melatonin supplementation. Daily aspirin and statin therapy. Encourage pulmonary toilet. Isolation precautions. Pulmonology consulted. (3) Acute respiratory failure due to COVID-19 Is this a current diagnosis for this admission?: Yes Plan: Resolved. Nnow maintaining oxygen saturations on room air. Chronic respiratory failure related to ELFEGO/obesity hypoventilation syndrome, worsened by acute viral pneumonia.. Remaining evaluation and management as described elsewhere. (4) HTN (hypertension) Qualifiers: Hypertension type: essential hypertension Qualified Code(s): I10 - Essential (primary) hypertension Is this a current diagnosis for this admission?: Yes Plan: Improved blood pressure control. Remain slightly elevated, though overall acceptable. Patient states that he previously had severly elevated BP requiring ~7 medications. Continue diltiazem cd 120 mg every 12 hours. Continue losartan 100 mg daily and hydrochlorothiazide 12.5 mg daily. Continue hydralazine 50 mg every 8 hours (previously prescribed 100 mg every 8). Cardiac diet. (5) Chronic atrial fibrillation with RVR Is this a current diagnosis for this admission?: Yes Plan: Improved; now rate controlled on oral diltiazem. Patient w/ chronic, persistent, a. fib. Typically is rate controlled in 70s-80s per patient. Patient is admitted to [facility] on continuous cardiac telemetry. Continue home dose Eliquis. Received diltiazem drip; titrated per protocol until rate control achieved. Now transitioned to oral diltiazem 120 mg cd q12h; continues to remain rate controlled. Outpatient follow up with established weigh and charge worker. (6) Morbid obesity with BMI of 50.0-59.9, adult Is this a current diagnosis for this admission?: Yes Plan: Dietary discretion and lifestyle modification encouraged. Cardiac diet. Patient's body habitus/BMI place him at high risk for COVID 19 complications. Patient's body habitus/BMI are contributing to his ELFEGO/obesity hypoventilation syndrome. Close attention to pulmonary toilet. (7) ELFEGO (obstructive sleep apnea) Is this a current diagnosis for this admission?: Yes Plan: BiPAP tonight to evaluate tolerance; having difficulty arranging Trilogy Overnight pulse oximetry completed. Discussed results with Dr. Paulino. Pulmonology consulted; appreciate Dr. Paulino's assistance. Has recommended discharge w/ Trilogy device. Discharge planning consulted. (8) Prolonged QT interval Is this a current diagnosis for this admission?: Yes Plan: Improved; though QTc still 497 Continue to avoid Qt prolonging medications (zofran, azithromycin) - Plan Summary Summary: Overnight pulse oximetry study completed; started on room air with titration of oxygen based on saturations. At 5 L/min via nasal cannula, the patient had a 32-second desaturation event to 77% SpO2. Patient had >99% desats over course of the study. Patient was referred to pulmonolgoy who has recommended Trilogy. Oxygen company is requiring PFT prior to authorizing device. Unfortunately, the only PFT equipment in the hospital is broken and the patient is not safe for discharge w/out equipment related to the severe/prolonged desaturation events documented in his overnight study; to the extent that the patient is at risk for sudden w/o equipment directed toward treatment of his ELFEGO/obesity hypoventilation syndrome. Patient has been supported w/ CPAP with O2 bleed in; he has done well with CPAP/PEEP 16 and FiO2 28%. Did trial BiPAP on room air; multiple desaturation events. Therefore, if Trilogy can't be arranged, CPAP w/ 2lpm O2 is a viable option. If this can't be arranged, patient may need to be discharged on day of/directly to overnight sleep study with equipment prior authorized pending study results, so that it can be delivered immediately following the study to ensure there is no lapse in treatment. This has been arranged in the past, though rarely and prior to COVID pandemic. Discharge planning is consulted and aware of need to prioritize patient's case on Thursday. - Time Time Spent with patient: 15-24 minutes Medications reviewed and adjusted accordingly: Yes Anticipated Discharge Disposition: Home, Self Care Anticipated Discharge Timeframe: pend DME
[2020-03-25] MEDS ORDERED: FUROSEMIDE INJ/PF 20 MG/2 ML SDV IV ONE (12:00)
[2020-03-25] MEDS: ATORVASTATIN CALCIUM 40 MG TABLET PO SCH (21:22)
[2020-03-25] MEDS: ACETAMINOPHEN 325 MG TABLET PO PRN (22:16)
[2020-03-26] MEDS: HYDRALAZINE HCL 50 MG TABLET PO SCH ×3 (06:14→21:10)
[2020-03-26] MEDS: DILTIAZEM HCL 120 MG CAP.SR.24H PO SCH ×2 (09:22→21:10)
[2020-03-26] MEDS: LOSARTAN POTASSIUM 50 MG TABLET PO SCH (09:22)
[2020-03-26] MEDS: CHOLECALCIFEROL (D3) 1,000 UNIT (25 MCG) TABLET PO SCH (09:22)
[2020-03-26] MEDS: HYDROCHLOROTHIAZIDE 12.5 MG TABLET PO SCH (09:22)
[2020-03-26] MEDS: APIXABAN 5 MG TABLET PO SCH ×2 (09:22→18:09)
[2020-03-26] MEDS: ASPIRIN 81 MG TABLET, ENT COATED PO SCH (09:22)
[2020-03-26] MEDS: PREDNISONE 20 MG TABLET PO SCH (09:22)
[2020-03-26] MEDS: FUROSEMIDE 40 MG TABLET PO SCH (09:22)
[2020-03-26] MEDS: DOCUSATE SODIUM 100 MG CAPSULE PO SCH (09:22)
[2020-03-26] MEDS: ZINC SULFATE 220 MG CAPSULE PO SCH (09:22)
[2020-03-26] MEDS: ASCORBIC ACID 500 MG TABLET PO SCH ×2 (09:23→18:09)
[2020-03-26] MEDS: MAGNESIUM OXIDE 400 MG TABLET PO SCH (09:23)
[2020-03-26] MEDS: ACETAMINOPHEN 325 MG TABLET PO PRN (11:22)
[2020-03-26] MEDS ORDERED: ALBUTEROL SULFATE 0.083% NEB 2.5 MG/3 ML AMPUL NEB PRN (14:38)
--- NOTE | 2020-03-26 14:49 | PDOC PROGRESS REPORT ---
Subjective Date:: 03/26/20 Subjective:: No adverse events overnight. No new complaints. Vital signs been stable. He w as sitting up in the chair on room air. Eating and drinking without difficulty. Reason For Visit: COVID PNEUMONIA,A FIB RVR Physical Exam Vital Signs: Temp Pulse Resp BP Pulse Ox 97.4 F 70 19 144/93 H 95 03/26/20 11:50 03/26/20 11:50 03/26/20 11:50 03/26/20 11:50 03/26/20 11:50 Pulse Oximeter Nocturnal Start: 03/21/20 16:48 Freq: RTQ4 Status: Complete Protocol: Document 03/22/20 05:01 [facility] (Rec: 03/22/20 05:02 [facility] [id number]) Nocturnal Pulse Oximetry Equipment Usage Equipment Discontinued Continuous SpO2 Machine # [id number] Intake & Output 03/25/20 03/26/20 03/27/20 06:59 06:59 06:59 Intake Total 770 560 Output Total 600 Balance 170 560 Weight 189.5 kg General appearance: PRESENT: no acute distress, cooperative, hard of hearing, morbidly obese Respiratory exam: PRESENT: clear to auscultation keenan, decreased breath sounds, symmetrical, unlabored. ABSENT: accessory muscle use, chest wall tenderness, crackles, prolonged expiratory phas, rhonchi, tachypnea, wheezes Cardiovascular exam: PRESENT: RRR, +S1, +S2 Pulses: PRESENT: normal carotid pulses Vascular exam: PRESENT: normal capillary refill GI/Abdominal exam: PRESENT: normal bowel sounds, soft, other - Pendulous abdominal pannus. ABSENT: distended, guarding, rebound, tenderness Musculoskeletal exam: PRESENT: normal inspection. ABSENT: deformity Neurological exam: PRESENT: alert, awake, oriented to person, oriented to place, oriented to situation, CN II-XII grossly intact. ABSENT: motor sensory deficit Psychiatric exam: PRESENT: appropriate affect, normal mood Skin exam: PRESENT: dry, warm Results Laboratory Results: 03/21/20 05:12 03/21/20 05:12 03/21/20 03/22/20 03/23/20 05:12 04:45 04:57 Creatine Kinase 149 173 H 79 NT-Pro-B Natriuret Pep 03/23/20 03/24/20 03/25/20 04:57 04:51 05:32 Creatine Kinase 90 96 NT-Pro-B Natriuret Pep 283 H 03/26/20 04:43 Creatine Kinase 92 NT-Pro-B Natriuret Pep Impressions: Chest X-Ray 03/22/20 00:00 IMPRESSION: Improved pulmonary examination demonstrating diminished, albeit persistent, upper lobe airspace opacities. Assessment and Plan - Diagnosis (1) Acute respiratory failure due to COVID-19 Is this a current diagnosis for this admission?: Yes (2) Chronic atrial fibrillation with RVR Is this a current diagnosis for this admission?: Yes (3) HTN (hypertension) Qualifiers: Hypertension type: essential hypertension Qualified Code(s): I10 - Essential (primary) hypertension Is this a current diagnosis for this admission?: Yes (4) Morbid obesity with BMI of 50.0-59.9, adult Is this a current diagnosis for this admission?: Yes (5) ELFEGO (obstructive sleep apnea) Is this a current diagnosis for this admission?: Yes (6) Obesity hypoventilation syndrome Is this a current diagnosis for this admission?: Yes (7) Pneumonia due to 2019-nCoV Is this a current diagnosis for this admission?: Yes - Plan Summary Summary: Overnight pulse oximetry study completed; started on room air with titration of oxygen based on saturations. At 5 L/min via nasal cannula, the patient had a 32-second desaturation event to 77% SpO2. Patient had >99% desats over course of the study. Patient was referred to pulmonolgoy who has recommended Trilogy. Oxygen company is requiring PFT prior to authorizing device. Unfortunately, the only PFT equipment in the hospital is broken and the patient is not safe for discharge w/out equipment related to the severe/prolonged desaturation events documented in his overnight study; to the extent that the patient is at risk for sudden w/o equipment directed toward treatment of his ELFEGO/obesity hypoventilation syndrome. Patient has been supported w/ CPAP with O2 bleed in; he has done well with CPAP/PEEP 16 and FiO2 28%. Did trial BiPAP on room air; multiple desaturation events. Therefore, if Trilogy can't be arranged, CPAP w/ 2lpm O2 is a viable option. If this can't be arranged, patient may need to be discharged on day of/directly to overnight sleep study with equipment prior authorized pending study results, so that it can be delivered immediately following the study to ensure there is no lapse in treatment. This has been arranged in the past, though rarely and prior to COVID pandemic. Case management notified me today that the patient would need pulmonary function testing in order to get him qualified for anything beyond oxygen at home. We have ordered some inpatient spirometry to obtain the test results needed to try to at least get him CPAP at home with oxygen. We will obtain these tests as soon as we are able to do so. - Time Time Spent with patient: 15-24 minutes Anticipated Discharge Disposition: Home with Home Health Anticipated Discharge Timeframe: Unknown
[2020-03-26] MEDS: ATORVASTATIN CALCIUM 40 MG TABLET PO SCH (21:10)
[2020-03-27 01:14] LABS: ARTERIAL BLOOD BASE EXCESS 4.5 mmol/L; ARTERIAL BLOOD H2CO3 1.34 mmol/L (1.05-1.35); ARTERIAL BLOOD HCO3 29.5 mmol/L (20-24); ARTERIAL BLOOD O2 SATURATION 94.9 % (94-98); ARTERIAL BLOOD PCO2 44.5 mmHg (35-45); ARTERIAL BLOOD PH 7.44 (7.35-7.45); ARTERIAL BLOOD PO2 71.8 mmHg (80-100); ARTERIAL BLOOD TOTAL CO2 30.8 mmol/L (23-27)
[2020-03-27 01:15] LABS: ARTERIAL BLOOD FIO2 ROOM AIR
[2020-03-27] MEDS: HYDRALAZINE HCL 50 MG TABLET PO SCH ×3 (05:21→21:46)
[2020-03-27] MEDS: ASCORBIC ACID 500 MG TABLET PO SCH ×2 (10:15→17:05)
[2020-03-27] MEDS: FUROSEMIDE 40 MG TABLET PO SCH (10:15)
[2020-03-27] MEDS: MAGNESIUM OXIDE 400 MG TABLET PO SCH (10:15)
[2020-03-27] MEDS: DOCUSATE SODIUM 100 MG CAPSULE PO SCH (10:15)
[2020-03-27] MEDS: CHOLECALCIFEROL (D3) 1,000 UNIT (25 MCG) TABLET PO SCH (10:16)
[2020-03-27] MEDS: ZINC SULFATE 220 MG CAPSULE PO SCH (10:16)
[2020-03-27] MEDS: LOSARTAN POTASSIUM 50 MG TABLET PO SCH (10:16)
[2020-03-27] MEDS: APIXABAN 5 MG TABLET PO SCH ×2 (10:16→17:05)
[2020-03-27] MEDS: ASPIRIN 81 MG TABLET, ENT COATED PO SCH (10:16)
[2020-03-27] MEDS: DILTIAZEM HCL 120 MG CAP.SR.24H PO SCH ×2 (10:16→21:46)
[2020-03-27] MEDS: HYDROCHLOROTHIAZIDE 12.5 MG TABLET PO SCH (10:16)
[2020-03-27] MEDS: PREDNISONE 20 MG TABLET PO SCH (10:16)
--- NOTE | 2020-03-27 15:48 | PDOC PROGRESS REPORT ---
Subjective Date:: 03/27/20 Subjective:: No adverse events overnight. No new complaints. Vital signs been stable. He w as sitting up in the chair on room air. Eating and drinking without difficulty. We tried to get ABG after he had been asleep for a few hours last night, but when his oxygen saturations dropped, he was put back on oxygen. His PCO2 did go up but not enough to get him qualified for BiPAP. Reason For Visit: COVID PNEUMONIA,A FIB RVR Physical Exam Vital Signs: Temp Pulse Resp BP Pulse Ox 98.2 F 96 20 139/96 H 98 03/27/20 11:31 03/27/20 11:31 03/27/20 11:31 03/27/20 11:31 03/27/20 11:31 Pulse Oximeter Nocturnal Start: 03/21/20 16:48 Freq: RTQ4 Status: Complete Protocol: Document 03/22/20 05:01 [facility] (Rec: 03/22/20 05:02 [facility] [id number]) Nocturnal Pulse Oximetry Equipment Usage Equipment Discontinued Continuous SpO2 Machine # [id number] Intake & Output 03/26/20 03/27/20 03/28/20 06:59 06:59 06:59 Intake Total 1285 470 Balance 1285 470 Weight 189.5 kg General appearance: PRESENT: no acute distress, cooperative, hard of hearing, morbidly obese Respiratory exam: PRESENT: clear to auscultation keenan, decreased breath sounds, symmetrical, unlabored. ABSENT: accessory muscle use, chest wall tenderness, crackles, prolonged expiratory phas, rhonchi, tachypnea, wheezes Cardiovascular exam: PRESENT: RRR, +S1, +S2 Pulses: PRESENT: normal carotid pulses Vascular exam: PRESENT: normal capillary refill GI/Abdominal exam: PRESENT: normal bowel sounds, soft, other - Pendulous a bdominal pannus. ABSENT: distended, guarding, rebound, tenderness Musculoskeletal exam: PRESENT: normal inspection. ABSENT: deformity Neurological exam: PRESENT: alert, awake, oriented to person, oriented to place, oriented to situation, CN II-XII grossly intact. ABSENT: motor sensory deficit Psychiatric exam: PRESENT: appropriate affect, normal mood Skin exam: PRESENT: dry, warm Results Laboratory Results: 03/21/20 05:12 03/21/20 05:12 03/27/20 00:55 Carbonic Acid 1.34 HCO3/H2CO3 Ratio 22:1 ABG pH 7.44 ABG pCO2 44.5 ABG pO2 71.8 L ABG HCO3 29.5 H ABG O2 Saturation 94.9 ABG Base Excess 4.5 FiO2 ROOM AIR 03/21/20 03/22/20 03/23/20 05:12 04:45 04:57 Creatine Kinase 149 173 H 79 NT-Pro-B Natriuret Pep 03/23/20 03/24/20 03/25/20 04:57 04:51 05:32 Creatine Kinase 90 96 NT-Pro-B Natriuret Pep 283 H 03/26/20 03/27/20 04:43 06:04 Creatine Kinase 92 76 NT-Pro-B Natriuret Pep Impressions: Chest X-Ray 03/22/20 00:00 IMPRESSION: Improved pulmonary examination demonstrating diminished, albeit persistent, upper lobe airspace opacities. Assessment and Plan - Diagnosis (1) Acute respiratory failure due to COVID-19 Is this a current diagnosis for this admission?: Yes (2) Chronic atrial fibrillation with RVR Is this a current diagnosis for this admission?: Yes (3) HTN (hypertension) Qualifiers: Hypertension type: essential hypertension Qualified Code(s): I10 - Essential (primary) hypertension Is this a current diagnosis for this admission?: Yes (4) Morbid obesity with BMI of 50.0-59.9, adult Is this a current diagnosis for this admission?: Yes (5) ELFEGO (obstructive sleep apnea) Is this a current diagnosis for this admission?: Yes (6) Obesity hypoventilation syndrome Is this a current diagnosis for this admission?: Yes (7) Pneumonia due to 2019-nCoV Is this a current diagnosis for this admission?: Yes - Plan Summary Summary: Overnight pulse oximetry study completed; started on room air with titration of oxygen based on saturations. At 5 L/min via nasal cannula, the patient had a 32-second desaturation event to 77% SpO2. Patient had >99% desats over course of the study. Patient was referred to pulmonolgoy who has recommended Trilogy. Oxygen company is requiring PFT prior to authorizing device. Unfortunately, the only PFT equipment in the hospital is broken and the patient is not safe for discharge w/out equipment related to the severe/prolonged desaturation events documented in his overnight study; to the extent that the patient is at risk for sudden w/o equipment directed toward treatment of his ELFEGO/obesity hypoventilation syndrome. Patient has been supported w/ CPAP with O2 bleed in; he has done well with CPAP/PEEP 16 and FiO2 28%. Did trial BiPAP on room air; multiple desaturation events. Therefore, if Trilogy can't be arranged, CPAP w/ 2lpm O2 is a viable option. If this can't be arranged, patient may need to be discharged on day of/directly to overnight sleep study with equipment prior authorized pending study results, so that it can be delivered immediately following the study to ensure there is no lapse in treatment. This has been arranged in the past, though rarely and prior to COVID pandemic. We are going to try again to get an ABG after he has been asleep for a while. It is critical for this patient's long-term wellbeing that we get this data at the appropriate time. I have asked the patient's nurse to pass on to the overnight nurse that his saturations are probably going to drop but we cannot put him on oxygen unless he stays hypoxic for several minutes. Typically what he does is wake himself up to take a breath and then goes back into the pattern of difficult breathing. This is a typical pattern for someone with obstructive sleep apnea. - Time Time Spent with patient: 15-24 minutes Anticipated Discharge Disposition: Home with Home Health Anticipated Discharge Timeframe: within 72 hours
[2020-03-27] MEDS: ATORVASTATIN CALCIUM 40 MG TABLET PO SCH (21:46)
[2020-03-28 01:04] LABS: ARTERIAL BLOOD BASE EXCESS 2.6 mmol/L; ARTERIAL BLOOD H2CO3 1.31 mmol/L (1.05-1.35); ARTERIAL BLOOD HCO3 27.6 mmol/L (20-24); ARTERIAL BLOOD O2 SATURATION 96.8 % (94-98); ARTERIAL BLOOD PCO2 43.5 mmHg (35-45); ARTERIAL BLOOD PH 7.42 (7.35-7.45); ARTERIAL BLOOD PO2 87.3 mmHg (80-100); ARTERIAL BLOOD TOTAL CO2 28.9 mmol/L (23-27)
[2020-03-28 01:14] LABS: ARTERIAL BLOOD FIO2 ROOM AIR
[2020-03-28] MEDS: HYDRALAZINE HCL 50 MG TABLET PO SCH ×3 (05:48→21:59)
[2020-03-28] MEDS: FUROSEMIDE 40 MG TABLET PO SCH (08:44)
[2020-03-28] MEDS: CHOLECALCIFEROL (D3) 1,000 UNIT (25 MCG) TABLET PO SCH (09:48)
[2020-03-28] MEDS: LOSARTAN POTASSIUM 50 MG TABLET PO SCH (09:49)
[2020-03-28] MEDS: PREDNISONE 20 MG TABLET PO SCH (09:49)
[2020-03-28] MEDS: ASCORBIC ACID 500 MG TABLET PO SCH ×2 (09:49→17:49)
[2020-03-28] MEDS: APIXABAN 5 MG TABLET PO SCH ×2 (09:50→17:49)
[2020-03-28] MEDS: DOCUSATE SODIUM 100 MG CAPSULE PO SCH (09:50)
[2020-03-28] MEDS: MAGNESIUM OXIDE 400 MG TABLET PO SCH (09:50)
[2020-03-28] MEDS: HYDROCHLOROTHIAZIDE 12.5 MG TABLET PO SCH (09:50)
[2020-03-28] MEDS: ASPIRIN 81 MG TABLET, ENT COATED PO SCH (09:50)
[2020-03-28] MEDS: DILTIAZEM HCL 120 MG CAP.SR.24H PO SCH ×2 (09:50→21:59)
[2020-03-28] MEDS: ZINC SULFATE 220 MG CAPSULE PO SCH (09:50)
--- NOTE | 2020-03-28 11:23 | Progress Note ---
Provider Note Provider Note: Mr. Salazar has been a patient in this facility since 03/18/2020 and is safe to return to work on 04/05/2020.
--- NOTE | 2020-03-28 14:17 | PDOC DISCHARGE SUMMARY ---
Impression - Admit/DC Date/PCP Admission Date/Primary Care Provider: 03/18/20 15:09 JUSTEN WADE MD Discharge Date: 03/28/20 - Discharge Diagnosis (1) Acute respiratory failure due to COVID-19 Is this a current diagnosis for this admission?: Yes (2) Chronic atrial fibrillation with RVR Is this a current diagnosis for this admission?: Yes (3) HTN (hypertension) Is this a current diagnosis for this admission?: Yes (4) Morbid obesity with BMI of 50.0-59.9, adult Is this a current diagnosis for this admission?: Yes (5) ELFEGO (obstructive sleep apnea) Is this a current diagnosis for this admission?: Yes (6) Obesity hypoventilation syndrome Is this a current diagnosis for this admission?: Yes (7) Pneumonia due to 2019-nCoV Is this a current diagnosis for this admission?: Yes - Assessment Summary: Overnight pulse oximetry study completed; started on room air with titration of oxygen based on saturations. At 5 L/min via nasal cannula, the patient had a 32-second desaturation event to 77% SpO2. Patient had >99% desats over course of the study. Patient was referred to pulmonolgoy who has recommended Trilogy. Oxygen company is requiring PFT prior to authorizing device. Unfortunately, the only PFT equipment in the hospital is broken and the patient is not safe for discharge w/out equipment related to the severe/prolonged desaturation events documented in his overnight study; to the extent that the patient is at risk for sudden w/o equipment directed toward treatment of his ELFEGO/obesity hypoventilation syndrome. Patient has been supported w/ CPAP with O2 bleed in; he has done well with CPAP/PEEP 16 and FiO2 28%. Did trial BiPAP on room air; multiple desaturation events. Therefore, if Trilogy can't be arranged, CPAP w/ 2lpm O2 is a viable option. If this can't be arranged, patient may need to be discharged on day of/directly to overnight sleep study with equipment prior authorized pending study results, so that it can be delivered immediately following the study to ensure there is no lapse in treatment. This has been arranged in the past, though rarely and prior to COVID pandemic. We are going to try again to get an ABG after he has been asleep for a while. It is critical for this patient's long-term wellbeing that we get this data at the appropriate time. I have asked the patient's nurse to pass on to the overnight nurse that his saturations are probably going to drop but we cannot put him on oxygen unless he stays hypoxic for several minutes. Typically what he does is wake himself up to take a breath and then goes back into the pattern of difficult breathing. This is a typical pattern for someone with obstructive sleep apnea. - Additional Information Resuscitation Status: Full Code Discharge Diet: Cardiac Discharge Activity: Activity As Tolerated Referrals: DON PAULINO MD [ACTIVE STAFF] - 04/04/20 8:00 am (1-2 weeks for PFT's and sleep study) JUSTEN WADE MD [Primary Care Provider] - 04/27/20 2:30 pm Prescriptions: Diltiazem HCl [Cardizem Cd 120 mg Capsule] 120 mg PO Q12 #60 cap.sr.24h Home Medications: Apixaban [Eliquis 5 mg Tablet] 5 mg PO BID 03/18/20 Atorvastatin Calcium [Lipitor 40 mg Tablet] 40 mg PO QHS 03/18/20 Furosemide [Lasix 40 mg Tablet] 40 mg PO QAM 03/18/20 Hydralazine HCl [Apresoline 50 mg Tablet] 100 mg PO Q8 03/18/20 Irbesartan/Hydrochlorothiazide [Irbesartan-Hctz 300-12.5 mg Tb] 1 each PO DAILY 03/18/20 Magnesium Oxide [Mag-Ox 400 mg Tablet] 400 mg PO DAILY 03/18/20 Ascorbic Acid [Vitamin C 500 mg Tablet] 500 mg PO BID tablet 03/28/20 Cholecalciferol (Vitamin D3) [Vitamin D3 1000 Unit Tablet] 2,000 unit PO DAILY tablet 03/28/20 Diltiazem HCl [Cardizem Cd 120 mg Capsule] 120 mg PO Q12 #60 cap.sr.24h 03/28/20 Zinc Sulfate [Zinc-220 Capsule] 220 mg PO DAILY capsule 03/28/20 History of Present Illiness History of Present Illness: DENI LIM is a 54 year old male with a past medical history of persistent atrial fibrillation, hypertension, hyperlipidemia, and morbid obesity who presented to the emergency department today with complaint of 4 to 5 days of progressively worsening fatigue, malaise/myalgia, and dyspnea at rest. He reports fever at home; T-max 101.5 yesterday. He states that his sister, who he lives with, is COVID positive. Evaluation in the emergency department revealed low-grade fever (99.1), atrial fibrillation RVR (HR 96-145; persistently >120), hypertension, and tachypnea. He is mildly hypoxic (88 to 92% on room air). Laboratory evaluation was essentially unremarkable other than ABG which revealed respiratory alkalosis. CXR reveals bilateral upper lob opacities consistent with coronavirus. He is referred to the hospitalist service for further evaluation and management of the above stated complaints and findings. Hospital Course Hospital Course: The above patient has failed BiPAP with a patent airway. This patient would benefit from noninvasive mechanical ventilation via the trilogy AVAPS/AE and faster responding AVAPS rates. The trilogy is able to provide a target tidal volume and also adjusting the EPAP pressures to maintain a patent airway as well as an oral backup rate this machine will help improve PaCO2 levels. The severity of the patient's condition will lead to future hospitalizations and readmissions as well as life-threatening situations without the use of this device day and night. Trilogy home vent needed for hypercapnic respiratory failure. Overnight pulse oximetry study completed; started on room air with titration of oxygen based on saturations. At 5 L/min via nasal cannula, the patient had a 32-second desaturation event to 77% SpO2. Patient had >99% desats over course of the study. Patient was referred to pulmonolgoy who has recommended Trilogy. Oxygen company is requiring PFT prior to authorizing device. Unfortunately, the only PFT equipment in the hospital is broken and the patient is not safe for discharge w/out equipment related to the severe/prolonged desaturation events documented in his overnight study; to the extent that the patient is at risk for sudden w/o equipment directed toward treatment of his ELFEGO/obesity hypoventilation syndrome. Patient has been supported w/ CPAP with O2 bleed in; he has done well with CPAP/PEEP 16 and FiO2 28%. Did trial BiPAP on room air; multiple desaturation events. Therefore, if Trilogy can't be arranged, CPAP w/ 2lpm O2 is a viable option. The patient's Covid pneumonia has completely resolved. As of March 31, it will be 14 days from his positive test result, and therefore he should not be a transmissible vector at that point. His comorbid's have been relatively well controlled, his blood pressure has occasionally been a bit of an issue before he takes his medications but afterwards his blood pressure seemed to improve. The patient's main issue has been his severe obstructive sleep apnea with obesity hypoventilation syndrome. The patient had an overnight pulse oximetry study. In 7 hours and 25 minutes, he had 99 desaturation events, an average of over 13 events per hour. The duration of the desaturation events was between 10 and 72 seconds, with an average duration of 32 seconds. The lowest desaturation event was SPO2 of 71%. Total desaturation time was 53 minutes and 32 seconds. Case management has informed me that despite all of our best efforts, we will not be able to get him qualified for a trilogy, BiPAP, or CPAP from the hospital. We will send him home on oxygen at night. We are trying to get him very close follow-up with Dr. Paulino so that he can get a sleep study as soon as possible. March 31 will be the th day from his positive Covid test. The patient is asymptomatic and all day long is on room air without any respiratory symptoms. It should be safe for him to get a sleep study after that day. He is being discharged home in stable condition. Physical Exam Vital Signs: Temp Pulse Resp BP Pulse Ox 97.3 F 88 19 159/109 H 99 03/28/20 07:52 03/28/20 07:52 03/28/20 07:52 03/28/20 07:52 03/28/20 10:28 Pulse Oximeter Nocturnal Start: 03/21/20 16:48 Freq: RTQ4 Status: Complete Protocol: Document 03/22/20 05:01 [facility] (Rec: 03/22/20 05:02 [facility] [id number]) Nocturnal Pulse Oximetry Equipment Usage Equipment Discontinued Continuous SpO2 Machine # [id number] Intake & Output 03/27/20 03/28/20 03/29/20 06:59 06:59 06:59 Intake Total 1285 1095 Balance 1285 1095 Weight 189.5 kg 191.5 kg General appearance: PRESENT: no acute distress, cooperative, hard of hearing, morbidly obese Respiratory exam: PRESENT: clear to auscultation keenan, decreased breath sounds, symmetrical, unlabored. ABSENT: accessory muscle use, chest wall tenderness, crackles, prolonged expiratory phas, rhonchi, tachypnea, wheezes Cardiovascular exam: PRESENT: RRR, +S1, +S2 Pulses: PRESENT: normal carotid pulses Vascular exam: PRESENT: normal capillary refill GI/Abdominal exam: PRESENT: normal bowel sounds, soft, other - Pendulous abdominal pannus. ABSENT: distended, guarding, rebound, tenderness Musculoskeletal exam: PRESENT: normal inspection. ABSENT: deformity Neurological exam: PRESENT: alert, awake, oriented to person, oriented to place, oriented to situation, CN II-XII grossly intact. ABSENT: motor sensory deficit Psychiatric exam: PRESENT: appropriate affect, normal mood Skin exam: PRESENT: dry, warm Results Laboratory Results: WBC 7.2 10^3/uL (4.0-10.5) 03/21/20 05:12 RBC 5.60 10^6/uL (4.35-5.55) H 03/21/20 05:12 Hgb 16.4 g/dL (13.5-17.0) 03/21/20 05:12 Hct 48.1 % (37.9-51.0) 03/21/20 05:12 MCV 86 fl (80-97) 03/21/20 05:12 MCH 29.2 pg (27.0-33.4) 03/21/20 05:12 MCHC 34.0 g/dL (32.0-36.0) 03/21/20 05:12 RDW 14.7 % (11.5-14.0) H 03/21/20 05:12 Plt Count 132 10^3/uL (150-450) L 03/21/20 05:12 Lymph % (Auto) 18.9 % (13-45) 03/19/20 05:22 [place] % (Auto) 10.8 % (3-13) 03/19/20 05:22 Eos % (Auto) 0.0 % (0-6) 03/19/20 05:22 Baso % (Auto) 0.2 % (0-2) 03/19/20 05:22 Absolute Neuts (auto) 2.6 10^3/uL (1.7-8.2) 03/19/20 05:22 Absolute Lymphs (auto) 0.7 10^3/uL (0.5-4.7) 03/19/20 05:22 Absolute Monos (auto) 0.4 10^3/uL (0.1-1.4) 03/19/20 05:22 Absolute Eos (auto) 0.0 10^3/uL (0.0-0.6) 03/19/20 05:22 Absolute Basos (auto) 0.0 10^3/uL (0.0-0.2) 03/19/20 05:22 Seg Neutrophils % 70.1 % (42-78) 03/19/20 05:22 D-Dimer < 0.27 ug/mL (0.00-0.50) 03/27/20 06:04 Carbonic Acid 1.31 mmol/L (1.05-1.35) 03/28/20 00:50 HCO3/H2CO3 Ratio 21:1 03/28/20 00:50 ABG pH 7.42 (7.35-7.45) 03/28/20 00:50 ABG pCO2 43.5 mmHg (35-45) 03/28/20 00:50 ABG pO2 87.3 mmHg (80-100) 03/28/20 00:50 ABG HCO3 27.6 mmol/L (20-24) H 03/28/20 00:50 ABG Total CO2 28.9 mmol/L (23-27) H 03/28/20 00:50 ABG O2 Saturation 96.8 % (94-98) 03/28/20 00:50 ABG Base Excess 2.6 mmol/L 03/28/20 00:50 FiO2 ROOM AIR 03/28/20 00:50 Sodium 136.3 mmol/L (137-145) L 03/21/20 05:12 Potassium 4.4 mmol/L (3.6-5.0) 03/21/20 05:12 Chloride 100 mmol/L (98-107) 03/21/20 05:12 Carbon Dioxide 24 mmol/L (22-30) 03/21/20 05:12 Anion Gap 12 (5-19) 03/21/20 05:12 BUN 31 mg/dL (7-20) H 03/21/20 05:12 Creatinine 1.12 mg/dL (0.52-1.25) 03/21/20 05:12 Est GFR ( Amer) > 60 (>60) 03/21/20 05:12 Est GFR (MDRD) Non-Af > 60 (>60) 03/21/20 05:12 Glucose 182 mg/dL (75-110) H 03/21/20 05:12 POC Glucose 208 mg/dL (70-110) H 03/19/20 21:03 Calcium 9.0 mg/dL (8.4-10.2) 03/21/20 05:12 Ferritin 141.00 ng/mL (17.9-464.0) 03/18/20 09:21 Total Bilirubin 0.8 mg/dL (0.2-1.3) 03/21/20 05:12 Direct Bilirubin 0.2 mg/dL (0.0-0.4) 03/21/20 05:12 Neonat Total Bilirubin Not Reportable 03/21/20 05:12 Neonat Direct Bilirubin Not Reportable 03/21/20 05:12 Neonat Indirect Bili Not Reportable 03/21/20 05:12 AST 36 U/L (17-59) 03/21/20 05:12 ALT 23 U/L (<50) 03/21/20 05:12 Alkaline Phosphatase 59 U/L (38-126) 03/21/20 05:12 Creatine Kinase 87 U/L (55-170) 03/28/20 05:40 C-Reactive Protein 10.0 mg/L (<10.0) 03/18/20 09:21 NT-Pro-B Natriuret Pep 283 pg/mL (<125) H 03/23/20 04:57 Total Protein 6.6 g/dL (6.3-8.2) 03/21/20 05:12 Albumin 3.9 g/dL (3.5-5.0) 03/21/20 05:12 COVID-19 Source See comment 03/18/20 09:30 COVID-19 (TIMBO) DETECTED (Not Detect) A 03/18/20 09:30 Influenza A (Rapid) NEGATIVE (NEGATIVE) 03/18/20 09:30 Influenza B (Rapid) NEGATIVE (NEGATIVE) 03/18/20 09:30 03/23/20 04:57 NT-Pro-B Natriuret Pep 283 H Impressions: Chest X-Ray 03/18/20 09:13 IMPRESSION: Dense upper lobe opacities suspicious for covid 19. Cardiac enlargement without failure. Chest X-Ray 03/22/20 00:00 IMPRESSION: Improved pulmonary examination demonstrating diminished, albeit persistent, upper lobe airspace opacities. Plan Time Spent: Greater than 30 Minutes Stroke Is this a Stroke Patient?: No Acute Heart Failure Is this a Heart Failure Patient?: No
--- NOTE | 2020-03-28 15:35 | Progress Note ---
Provider Note Provider Note: Last night, just after midnight, this patient had an oxygen desaturation event on room air where his SPO2 dropped down to 63%. This happens every time he is on room air and asleep.
[2020-03-28] MEDS: ATORVASTATIN CALCIUM 40 MG TABLET PO SCH (21:59)
[2020-03-29] MEDS: HYDRALAZINE HCL 50 MG TABLET PO SCH ×3 (05:31→21:56)
[2020-03-29 06:11] LABS: ARTERIAL BLOOD BASE EXCESS 3.8 mmol/L; ARTERIAL BLOOD H2CO3 1.28 mmol/L (1.05-1.35); ARTERIAL BLOOD HCO3 28.3 mmol/L (20-24); ARTERIAL BLOOD PCO2 42.4 mmHg (35-45); ARTERIAL BLOOD PH 7.44 (7.35-7.45); ARTERIAL BLOOD PO2 88.1 mmHg (80-100); ARTERIAL BLOOD TOTAL CO2 29.6 mmol/L (23-27)
[2020-03-29 06:14] LABS: ARTERIAL BLOOD FIO2 ROOM AIR
[2020-03-29] MEDS: FUROSEMIDE 40 MG TABLET PO SCH (08:59)
[2020-03-29] MEDS: APIXABAN 5 MG TABLET PO SCH ×2 (08:59→17:03)
[2020-03-29] MEDS: PREDNISONE 20 MG TABLET PO SCH (08:59)
[2020-03-29] MEDS: DILTIAZEM HCL 120 MG CAP.SR.24H PO SCH ×2 (08:59→21:57)
[2020-03-29] MEDS: HYDROCHLOROTHIAZIDE 12.5 MG TABLET PO SCH (09:00)
[2020-03-29] MEDS: CHOLECALCIFEROL (D3) 1,000 UNIT (25 MCG) TABLET PO SCH (09:00)
[2020-03-29] MEDS: MAGNESIUM OXIDE 400 MG TABLET PO SCH (09:00)
[2020-03-29] MEDS: DOCUSATE SODIUM 100 MG CAPSULE PO SCH (09:00)
[2020-03-29] MEDS: ASCORBIC ACID 500 MG TABLET PO SCH ×2 (09:00→17:03)
[2020-03-29] MEDS: ASPIRIN 81 MG TABLET, ENT COATED PO SCH (09:00)
[2020-03-29] MEDS: ZINC SULFATE 220 MG CAPSULE PO SCH (09:00)
[2020-03-29] MEDS: LOSARTAN POTASSIUM 50 MG TABLET PO SCH (09:00)
--- NOTE | 2020-03-29 16:44 | PDOC PROGRESS REPORT ---
Subjective Date:: 03/29/20 Subjective:: Patient was not on oxygen last night, but the overnight pulse oximetry test was not performed. It has been reordered for tonight. He did have some desaturation events on room air last night. He has no complaints today. Reason For Visit: COVID PNEUMONIA,A FIB RVR Physical Exam Vital Signs: Temp Pulse Resp BP Pulse Ox 97.8 F 83 20 143/94 H 97 03/29/20 11:53 03/29/20 11:53 03/29/20 11:53 03/29/20 11:53 03/29/20 11:53 Pulse Oximeter Nocturnal Start: 03/21/20 16:48 Freq: RTQ4 Status: Complete Protocol: Document 03/22/20 05:01 [facility] (Rec: 03/22/20 05:02 [facility] [id number]) Nocturnal Pulse Oximetry Equipment Usage Equipment Discontinued Continuous SpO2 Machine # [id number] Intake & Output 03/28/20 03/29/20 03/30/20 06:59 06:59 06:59 Intake Total 1095 740 Balance 1095 740 Weight 191.5 kg 189.6 kg General appearance: PRESENT: no acute distress, cooperative, hard of hearing, morbidly obese Respiratory exam: PRESENT: clear to auscultation keenan, decreased breath sounds, symmetrical, unlabored. ABSENT: accessory muscle use, chest wall tenderness, crackles, prolonged expiratory phas, rhonchi, tachypnea, wheezes Cardiovascular exam: PRESENT: RRR, +S1, +S2 Pulses: PRESENT: normal carotid pulses Vascular exam: PRESENT: normal capillary refill GI/Abdominal exam: PRESENT: normal bowel sounds, soft, other - Pendulous abdominal pannus. ABSENT: distended, guarding, rebound, tenderness Musculoskeletal exam: PRESENT: normal inspection. ABSENT: deformity Neurological exam: PRESENT: alert, awake, oriented to person, oriented to place, oriented to situation, CN II-XII grossly intact. ABSENT: motor sensory deficit Psychiatric exam: PRESENT: appropriate affect, normal mood Skin exam: PRESENT: dry, warm Results Laboratory Results: 03/21/20 05:12 03/21/20 05:12 03/29/20 05:55 Carbonic Acid 1.28 HCO3/H2CO3 Ratio 22:1 ABG pH 7.44 ABG pCO2 42.4 ABG pO2 88.1 ABG HCO3 28.3 H ABG O2 Saturation 97.0 ABG Base Excess 3.8 FiO2 ROOM AIR 03/21/20 03/22/20 03/23/20 05:12 04:45 04:57 Creatine Kinase 149 173 H 79 NT-Pro-B Natriuret Pep 03/23/20 03/24/20 03/25/20 04:57 04:51 05:32 Creatine Kinase 90 96 NT-Pro-B Natriuret Pep 283 H 03/26/20 03/27/20 03/28/20 04:43 06:04 05:40 Creatine Kinase 92 76 87 NT-Pro-B Natriuret Pep 03/29/20 05:04 Creatine Kinase 95 NT-Pro-B Natriuret Pep Impressions: Chest X-Ray 03/22/20 00:00 IMPRESSION: Improved pulmonary examination demonstrating diminished, albeit persistent, upper lobe airspace opacities. Assessment and Plan - Diagnosis (1) Acute respiratory failure due to COVID-19 Is this a current diagnosis for this admission?: Yes (2) Chronic atrial fibrillation with RVR Is this a current diagnosis for this admission?: Yes (3) HTN (hypertension) Qualifiers: Hypertension type: essential hypertension Qualified Code(s): I10 - Essential (primary) hypertension Is this a current diagnosis for this admission?: Yes (4) Morbid obesity with BMI of 50.0-59.9, adult Is this a current diagnosis for this admission?: Yes (5) ELFEGO (obstructive sleep apnea) Is this a current diagnosis for this admission?: Yes (6) Obesity hypoventilation syndrome Is this a current diagnosis for this admission?: Yes (7) Pneumonia due to 2019-nCoV Is this a current diagnosis for this admission?: Yes - Plan Summary Summary: Overnight pulse oximetry study completed; started on room air with titration of oxygen based on saturations. At 5 L/min via nasal cannula, the patient had a 32-second desaturation event to 77% SpO2. Patient had >99% desats over course of the study. Patient was referred to pulmonolgoy who has recommended Trilogy. Oxygen company is requiring PFT prior to authorizing device. Unfortunately, the only PFT equipment in the hospital is broken and the patient is not safe for discharge w/out equipment related to the severe/prolonged desaturation events documented in his overnight study; to the extent that the patient is at risk for sudden w/o equipment directed toward treatment of his ELFEGO/obesity hypoventilation syndrome. Patient has been supported w/ CPAP with O2 bleed in; he has done well with CPAP/PEEP 16 and FiO2 28%. Did trial BiPAP on room air; multiple desaturation events. Therefore, if Trilogy can't be arranged, CPAP w/ 2lpm O2 is a viable option. If this can't be arranged, patient may need to be discharged on day of/directly to overnight sleep study with equipment prior authorized pending study results, so that it can be delivered immediately following the study to ensure there is no lapse in treatment. This has been arranged in the past, though rarely and prior to COVID pandemic. We failed numerous times to capture the appropriate data needed to get him qualified for anything at home. Apparently we cannot get him a CPAP or BiPAP from the hospital no matter what we do. We release going to try in to get an overnight pulse oximetry test so that we can get him some oxygen at home. Hopefully this will work well enough for him until he can have a sleep study as an outpatient. I have counseled the staff regarding what he will typically do when he is asleep. Typically what he does is wake himself up to take a breath and then goes back into the pattern of sonorous breathing. This is a typical pattern for someone with obstructive sleep apnea. - Time Time Spent with patient: 15-24 minutes Anticipated Discharge Disposition: Home, Self Care Anticipated Discharge Timeframe: within 24 hours
[2020-03-29] MEDS: ATORVASTATIN CALCIUM 40 MG TABLET PO SCH (21:57)
[2020-03-30] MEDS: HYDRALAZINE HCL 50 MG TABLET PO SCH ×2 (05:30→13:16)
[2020-03-30] MEDS: FUROSEMIDE 40 MG TABLET PO SCH (08:14)
[2020-03-30] MEDS: DOCUSATE SODIUM 100 MG CAPSULE PO SCH (09:07)
[2020-03-30] MEDS: MAGNESIUM OXIDE 400 MG TABLET PO SCH (09:07)
[2020-03-30] MEDS: PREDNISONE 20 MG TABLET PO SCH (09:07)
[2020-03-30] MEDS: CHOLECALCIFEROL (D3) 1,000 UNIT (25 MCG) TABLET PO SCH (09:07)
[2020-03-30] MEDS: APIXABAN 5 MG TABLET PO SCH (09:07)
[2020-03-30] MEDS: ASCORBIC ACID 500 MG TABLET PO SCH (09:07)
[2020-03-30] MEDS: ZINC SULFATE 220 MG CAPSULE PO SCH (09:07)
[2020-03-30] MEDS: DILTIAZEM HCL 120 MG CAP.SR.24H PO SCH (09:07)
[2020-03-30] MEDS: ASPIRIN 81 MG TABLET, ENT COATED PO SCH (09:08)
[2020-03-30] MEDS: LOSARTAN POTASSIUM 50 MG TABLET PO SCH (09:08)
[2020-03-30] MEDS: HYDROCHLOROTHIAZIDE 12.5 MG TABLET PO SCH (09:08)
[2020-03-30 15:35] VITALS: BP 142/80
--- NOTE | 2020-03-30 16:08 | Progress Note ---
Provider Note Provider Note: This is an addendum to his discharge summary, originally dictated 28 March 2020. We have kept him since that time in an attempt to get room air ABGs to qualify him for CPAP or BiPAP, but were unable to meet the requirements. We had to repeat his overnight pulse oximetry, which was done last night, and the resul ts of this were enough to qualify him for oxygen at home. He has follow-up in [address] Paulino to schedule an overnight sleep study, and I have no doubts that he will at least qualify for CPAP after that study based on her observations of him asleep here on room air. His clinical condition since the original discharge summary was dictated is unchanged and has been good. He is discharged home in stable condition.
== END 2020-03-30 15:58 | disposition home or self-care (01) | DRG 177 ==
LOC: ER 08:36 → EH 15:09 → 3W 17:27
PROVIDERS: ADMIT Hospitalist; ATTEND Family Medicine
PROC: 5A09357 Assistance with Respiratory Ventilation, Less than 24 Consecutive Hours, Continuous Positive Airway Pressure (ICD-10-PCS; 2020-03-18)
PROC: XW033E5 Introduction of Remdesivir Anti-infective into Peripheral Vein, Percutaneous Approach, New Technology Group 5 (ICD-10-PCS; principal; 2020-03-20)
DX: U07.1 COVID-19 (principal); J12.89 Other viral pneumonia; J96.01 Acute respiratory failure with hypoxia; I48.20 Chronic atrial fibrillation, unspecified; Z68.43 Body mass index [BMI] 50.0-59.9, adult; E66.2 Morbid (severe) obesity with alveolar hypoventilation; I10 Essential (primary) hypertension; I48.91 Unspecified atrial fibrillation; E78.00 Pure hypercholesterolemia, unspecified; R94.31 Abnormal electrocardiogram [ECG] [EKG]; Z79.02 Long term (current) use of antithrombotics/antiplatelets; Z79.899 Other long term (current) drug therapy; Z79.891 Long term (current) use of opiate analgesic
CPT/HCPCS: 36415; 36600; 71045; 80048; 80053; 82550; 82728; 82803; 82962; 83880; 85025; 85027; 85379; 86140; 87070; 87205; 87635; 87804; 93005; 93010; 94640; 94660; 94762; 99285; C9803; J1100; J1940; J2920; J3490; J7030; J7050; J7512; J7613

== ENCOUNTER → 2020-04-18 | Outpatient (CLI) | payer BC ==
[2020-04-18 12:19] LABS: ANION GAP 7 (5-19); BLOOD UREA NITROGEN 16 mg/dL (7-20); CALCIUM 9.5 mg/dL (8.4-10.2); CARBON DIOXIDE 31 mmol/L (22-30); CHLORIDE 102 mmol/L (98-107); GLUCOSE 110 mg/dL (75-110)
== END ==
LOC: OD 10:58
PROVIDERS: ATTEND Physician Assistant
DX: R06.00 Dyspnea, unspecified (principal); I10 Essential (primary) hypertension
CPT/HCPCS: 36415; 80048; 83880

== ENCOUNTER → 2020-04-28 | Outpatient (CLI) | payer BC ==
[2020-04-28 10:51] LABS: ANION GAP 5 (5-19); BLOOD UREA NITROGEN 27 mg/dL (7-20); CALCIUM 9.4 mg/dL (8.4-10.2); CARBON DIOXIDE 36 mmol/L (22-30); CHLORIDE 97 mmol/L (98-107); GLUCOSE 121 mg/dL (75-110); POTASSIUM 4.3 mmol/L (3.6-5.0)
== END ==
LOC: OD 09:28
PROVIDERS: ATTEND Physician Assistant
DX: R06.00 Dyspnea, unspecified (principal); I10 Essential (primary) hypertension
CPT/HCPCS: 36415; 80048; 83880

== ENCOUNTER → 2020-05-07 | Outpatient (CLI) | payer BC ==
[2020-05-07 15:29] LABS: ANION GAP 8 (5-19); BLOOD UREA NITROGEN 18 mg/dL (7-20); CALCIUM 9.4 mg/dL (8.4-10.2); CARBON DIOXIDE 34 mmol/L (22-30); CHLORIDE 98 mmol/L (98-107); GLUCOSE 178 mg/dL (75-110)
== END ==
LOC: OD 08:44
PROVIDERS: ATTEND Physician Assistant
DX: R06.00 Dyspnea, unspecified (principal); I10 Essential (primary) hypertension
CPT/HCPCS: 36415; 80048; 83880

== ENCOUNTER 2020-05-10 13:34 | Emergency (ER) | payer BC ==
--- NOTE | 2020-05-10 14:47 | ER Document Report ---
ED Medical Screen (RME) - General Chief Complaint: Chest Pressure Stated Complaint: CHEST PRESSURE Primary Care Provider: BECKA CUNNINGHAM PA-C [Primary Care Provider] - Follow up as needed TRAVEL OUTSIDE OF THE [place] IN LAST 30 DAYS: No - HPI Notes: 05/10/20 14:43 Rapid Medical Exam HPI: 54-year-old male presents to the ER complaining of chest pains and shortness of breath. Patient says he woke this morning and had a "5-second". Where he felt like he could not free or top. He was diagnosed with Covid in March and has ongoing shortness of breath and body aches since, says he a covid ''long hauler''. No high fevers in the past few weeks. Patient is a history of chronic A. fib and is on blood thinners. He also says he was diagnosed with heart failure after the Covid diagnosis. He says his heart doctors doubled up on his Lasix recently and he has lost 7 pounds since then but says his legs continue to swell. Does endorse orthopnea. Patient said he had a stress test this past year and says cardiology was monitoring one-vessel that was showing some signs of blockage. He denies any chest pain at this time. Reports she was diagnosed with sleep apnea recently and is expecting a CPAP machine to arrive at his house soon. No history of cardiac stents or CABG Physical Exam: GENERAL: Well-appearing, well-nourished and in no acute distress. HEAD: Atraumatic, normocephalic. ENT: Moist mucous membranes. RESP: Respirations even, slightly labored. CV- irregular rhythm, rate 105. . NEURO: No focal neurological deficits. Moves all extremities spontaneously and on command. My involvement in this patients care was limited to a rapid initial assessment. A comprehensive ED assessment and evaluation of the patient, analysis of test results, treatment, and completion of the medical decision making process will be performed by other ER providers. - Related Data Allergies/Adverse Reactions: No Known Allergies Allergy (Verified 05/10/20 14:36) Past Medical History - Past Medical History Cardiac Medical History: Reports: Hx Atrial Fibrillation, Hx Hypercholesterolemia, Hx Hypertension Denies: Hx Congestive Heart Failure, Hx Heart Attack Pulmonary Medical History: Reports: Hx Sleep Apnea Renal/ Medical History: Denies: Hx Peritoneal Dialysis Psychiatric Medical History: Denies: Hx Depression Past Surgical History: Reports: Hx Appendectomy, Hx Orthopedic Surgery - left shoulder Physical Exam - Vital signs Vitals: Temp Pulse Resp BP Pulse Ox 98.1 F 114 H 21 H 151/79 H 94 05/10/20 13:48 05/10/20 13:48 05/10/20 13:48 05/10/20 13:48 05/10/20 13:48 Course - Vital Signs Vital signs: Temp Pulse Resp BP Pulse Ox 98.1 F 114 H 21 H 151/79 H 94 05/10/20 13:48 05/10/20 13:48 05/10/20 13:48 05/10/20 13:48 05/10/20 13:48 Doctor's Discharge - Discharge Referrals: BECKA CUNNINGHAM PA-C [Primary Care Provider] - Follow up as needed
--- NOTE | 2020-05-10 15:29 | RADIOLOGY REPORT (SQ) ---
EXAM DESCRIPTION: CHEST SINGLE VIEW IMAGES COMPLETED DATE/TIME: 05/10/2020 3:08 pm REASON FOR STUDY: chest pain, sob COMPARISON: 03/22/2020 EXAM PARAMETERS: NUMBER OF VIEWS: One view. TECHNIQUE: Single frontal radiographic view of the chest acquired. RADIATION DOSE: NA LIMITATIONS: None. FINDINGS: LUNGS AND PLEURA: No opacities, masses or pneumothorax. No pleural effusion. MEDIASTINUM AND HILAR STRUCTURES: No masses. Contour normal. HEART AND VASCULAR STRUCTURES: Heart normal in size. Normal vasculature. BONES: No acute findings. HARDWARE: None in the chest. OTHER: No other significant finding. IMPRESSION: NO ACUTE RADIOGRAPHIC FINDING IN THE CHEST. TECHNICAL DOCUMENTATION: JOB ID: [id number] 2010 [employer]- All Rights Reserved Reading location - IP/workstation name: [email or web address]
[2020-05-10 15:30] LABS: ABSOLUTE BASOPHILS # (AUTO) 0.1 10^3/uL (0.0-0.2); ABSOLUTE EOSINOPHILS # (AUTO) 0.1 10^3/uL (0.0-0.6); ABSOLUTE LYMPHOCYTES (AUTO) 1.7 10^3/uL (0.5-4.7); ABSOLUTE MONOCYTES (AUTO) 0.8 10^3/uL (0.1-1.4); ABSOLUTE NEUT (AUTO) 6.2 10^3/uL (1.7-8.2); BASOPHILS % (AUTO) 0.8 % (0-2); EOSINOPHILS % (AUTO) 1.1 % (0-6); HEMATOCRIT 43.4 % (37.9-51.0); LYMPHOCYTES % (AUTO) 19.4 % (13-45); MEAN CORPUSCULAR HEMOGLOBIN 29.9 pg (27.0-33.4); MEAN CORPUSCULAR HGB CONC 34.6 g/dL (32.0-36.0); MEAN CORPUSCULAR VOLUME 86 fl (80-97); MONOCYTES % (AUTO) 9.2 % (3-13); PLATELET COUNT 132 10^3/uL (150-450); RED BLOOD COUNT 5.03 10^6/uL (4.35-5.55); RED CELL DISTRIBUTION WIDTH 15.8 % (11.5-14.0); SEGMENTED NEUTROPHILS % (AUTO) 69.5 % (42-78); TOTAL CELLS COUNTED % (AUTO) 100 %; WHITE BLOOD COUNT 8.9 10^3/uL (4.0-10.5)
[2020-05-10 15:46] LABS: ALBUMIN 3.9 g/dL (3.5-5.0); ALKALINE PHOSPHATASE 72 U/L (38-126); ANION GAP 5 (5-19); ASPARTATE AMINO TRANSFERASE 33 U/L (17-59); BILIRUBIN,DIRECT 0.2 mg/dL (0.0-0.4); BILIRUBIN,TOTAL 0.7 mg/dL (0.2-1.3); BLOOD UREA NITROGEN 25 mg/dL (7-20); CALCIUM 9.7 mg/dL (8.4-10.2); CARBON DIOXIDE 31 mmol/L (22-30); CHLORIDE 101 mmol/L (98-107); GLUCOSE 122 mg/dL (75-110); TOTAL PROTEIN 6.4 g/dL (6.3-8.2)
[2020-05-10 15:58] LABS: TROPONIN I 0.012 ng/mL
[2020-05-10 17:07] LABS: APPEARANCE,URINE CLEAR; BILIRUBIN,URINE NEGATIVE (NEGATIVE); COLOR,URINE YELLOW; GLUCOSE, URINE NEGATIVE (NEGATIVE); KETONES,URINE NEGATIVE (NEGATIVE); LEUKOCYTE ESTERASE,URINE NEGATIVE (NEGATIVE); NITRITE,URINE NEGATIVE (NEGATIVE); PROTEIN,URINE 30 mg/dL (NEGATIVE); URINE SPECIFIC GRAVITY 1.025; UROBILINOGEN,URINE NEGATIVE mg/dL (<2.0)
--- NOTE | 2020-05-10 18:40 | ER Document Report ---
Entered by MELISSA RESENDEZ SCRIBE 05/10/20 1735 Acting as scribe for:LUIS LOCKE DO ED General - General Chief Complaint: Swelling Stated Complaint: CHEST PRESSURE Time Seen by Provider: 05/10/20 16:58 Primary Care Provider: BECKA CUNNINGHAM PA-C [PHYSICIAN REHABILITATION MANAGER] - Follow up as needed Information source: Patient Notes: This 54 year old male patient presents to the emergency department today with complaints of shortness of breath for the past month since having covid. Patient states he was admitted to [facility] last month with covid pneumonia and respiratory failure. Patient reports obstructive sleep apnea and his CPAP machine is arriving within a week. Patient states he visited his Assistant [employer] and was told he had heart failure during his admit that was not found. Patient states he woke this morning and had a short episode for 5 seconds where he could not get air in and began to panic. Denies any high fevers or chest pain. Patient states he is on Eliquis for his Afib and has a appointment tomorrow at [facility]. TRAVEL OUTSIDE OF THE [place] IN LAST 30 DAYS: No - Related Data Allergies/Adverse Reactions: No Known Allergies Allergy (Verified 05/10/20 14:36) Home Medications: torsemide. bumetanide. irbesar/hctz. eliquis. atorvastatin. mag ox. hydralizine. asa Past Medical History - General Information source: Patient, [facility] Records - Social History Smoking Status: Never Smoker Cigarette use (# per day): No Chew tobacco use (# tins/day): No Frequency of alcohol use: None Drug Abuse: None Family History: Hypertension Patient has homicidal ideation: No - Past Medical History Cardiac Medical History: Reports: Hx Atrial Fibrillation, Hx Hyperchol esterolemia, Hx Hypertension Pulmonary Medical History: Reports: Hx Pneumonia, Hx Sleep Apnea Renal/ Medical History: Denies: Hx Peritoneal Dialysis Past Surgical History: Reports: Hx Appendectomy, Hx Orthopedic Surgery - left shoulder Review of Systems - Review of Systems Constitutional: See HPI, Recent illness. denies: Fever EENT: No symptoms reported Cardiovascular: See HPI. denies: Chest pain Respiratory: See HPI, Short of breath Gastrointestinal: No symptoms reported Genitourinary: No symptoms reported Male Genitourinary: No symptoms reported Musculoskeletal: No symptoms reported Skin: No symptoms reported Hematologic/Lymphatic: No symptoms reported Neurological/Psychological: No symptoms reported -: Yes All other systems reviewed and negative Physical Exam - Vital signs Vitals: Temp Pulse Resp BP Pulse Ox 98.1 F 114 H 21 H 151/79 H 94 05/10/20 13:48 05/10/20 13:48 05/10/20 13:48 05/10/20 13:48 05/10/20 13:48 - General General appearance: Alert - HEENT Head: Normocephalic, Atraumatic Eyes: Normal Pupils: PERRL - Respiratory Respiratory status: No respiratory distress Chest status: Nontender Chest palpation: Normal - Cardiovascular Rhythm: Irregularly irregular, Tachycardia Heart sounds: Normal auscultation Murmur: No - Abdominal Inspection: Morbidly Obese Distension: No distension Bowel sounds: Normal Tenderness: Nontender - Extremities General upper extremity: Normal inspection, Normal ROM Notes: 3+ peripheral edema to the bilateral lower extremities that is equal and symme trical. - Neurological Neuro grossly intact: Yes Cognition: Normal Orientation: AAOx4 [place]ivia Coma Scale Eye Opening: Spontaneous [place] Coma Scale Verbal: Oriented [place] Coma Scale Motor: Obeys Commands [place] Coma Scale Total: 15 Speech: Normal Sensory: Normal - Psychological Associated symptoms: Normal affect, Normal mood - Skin Skin Temperature: Warm Skin Moisture: Dry Skin Color: Normal Course - Re-evaluation Re-evalutation: 05/10/20 18:23 MDM 54 year old male with A fib, covid in 04/08 and had a spell where he woke up this am and panicked and felt he could no catch his breath for about 5 seconds. Since then he has felt ok. No fever and no chest pain and taking medicines as directed which includes anticoagulation. He has pcp follow up scheduled for the am tomorrow. I feel that is reasonable. He had some degree of anxiety associated with feeling badly and will treat this. - Vital Signs Vital signs: Temp Pulse Resp BP Pulse Ox 98.4 F 98 22 H 149/76 H 96 05/10/20 19:11 05/10/20 19:11 05/10/20 19:11 05/10/20 19:11 05/10/20 19:11 - Laboratory Results Result Diagrams: 05/10/20 15:16 05/10/20 15:16 Laboratory Results Interpreted: 0105/10/20 05/10/20 15:16 15:16 15:16 RDW 15.8 H Plt Count 132 L Sodium 136.9 L Carbon Dioxide 31 H BUN 25 H Creatinine 1.46 H Est GFR (MDRD) Non-Af 50 L Glucose 122 H NT-Pro-B Natriuret Pep 389 H Urine Protein 05/10/20 16:29 RDW Plt Count Sodium Carbon Dioxide BUN Creatinine Est GFR (MDRD) Non-Af Glucose NT-Pro-B Natriuret Pep Urine Protein 30 H Critical Laboratory Results Reviewed: No Critical Results - Radiology Results Critical Radiology Results Reviewed: No Critical Results Discharge - Discharge Clinical Impression: Renal insufficiency HTN (hypertension) Qualifiers: Hypertension type: unspecified Qualified Code(s): I10 - Essential (primary) hypertension Atrial fibrillation Qualifiers: Atrial fibrillation type: unspecified chronic Qualified Code(s): 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 Return here for chest pain, shortness of breath, other problems or other concerns. Keep your follow up with your primary doctor in the am 05/11. Continue to take your regular medicines as directed. Your medicine was sent to [facility] on . Your kidney function is off just a bit and needs to be rechecked. Prescriptions: Lorazepam [Ativan 0.5 mg Tablet] 0.5 mg PO Q4 PRN #10 tab PRN Reason: Lorazepam [Ativan 0.5 mg Tablet] 0.5 mg PO Q4 PRN #10 tab PRN Reason: Referrals: BECKA CUNNINGHAM PA-C [PHYSICIAN REHABILITATION MANAGER] - Follow up as needed I personally performed the services described in the documentation, reviewed and edited the documentation which was dictated to the scribe in my presence, and it accurately records my words and actions.
[2020-05-10 19:11] VITALS: BP 149/76
--- NOTE | 2020-05-10 20:11 | EKG REPORT ---
SEVERITY:- ABNORMAL ECG - ATRIAL FIBRILLATION BORDERLINE IVCD WITH LAD : Confirmed by: Tyler Lebron MD 10-May-2020 20:10:37
== END 2020-05-10 19:11 | disposition home or self-care (01) ==
LOC: ER 13:34
DX: N28.9 Disorder of kidney and ureter, unspecified (principal); I48.20 Chronic atrial fibrillation, unspecified; I10 Essential (primary) hypertension; R06.02 Shortness of breath; G47.33 Obstructive sleep apnea (adult) (pediatric); Z79.01 Long term (current) use of anticoagulants; Z79.899 Other long term (current) drug therapy; Z79.82 Long term (current) use of aspirin
CPT/HCPCS: 36415; 71045; 80053; 81001; 83880; 84484; 85025; 93005; 93010; 99285